=== PATIENT | male | born 1935 | race Caucasian/White ===

== ENCOUNTER 2016-12-19 15:35 | Inpatient (IN) | payer MEDICARE, BC, MEDICAID ==
[2016-12-19] MEDS ORDERED: Lactated Ringers 1,000 ML IV SCH ×2 (17:15→18:29)
--- NOTE | 2016-12-19 17:28 | EDM.PDOC ---
[id number] 4d ILLNESS Time Seen by Provider: 12/19/16 17:00 Source of Information: Reports: Patient, EMS, Family History Limitations: Reports: No Limitations - History of Present Illness INITIAL COMMENTS - FREE TEXT/NARRATIVE: 81-year-old lives with his son, usually fairly independent, active, gets around on his own, however over the past 12 hours has become very weak. He was incontinent this morning, did not have the strength in his legs to go up and down stairs and his son was unable to take care of him. He also felt "warm". He had no nausea or vomiting, no shortness of breath, no headache, and no asymmetric weakness that his son identified. He also seems somewhat confused compared to his baseline. Onset: Unknown/Unsure (Symptoms seem to come on sometime overnight and this morning) Location: Reports: Generalized (Mostly his legs were the weakest) Quality: Reports: Other (Patient himself has no complaints) Severity: Moderate Worsens with: Reports: Other (Trying to ambulate he doesn't have the strength) Associated Symptoms: Reports: Confusion, Fever/Chills, Malaise, Weakness - Related Data Allergies Allergy/AdvReac Type Severity Reaction Status Date / Time No Known Allergies Allergy Verified 12/19/16 15:51 Home Meds: Home Meds Atenolol 50 mg PO BID 07/08/13 [History] Digoxin 0.25 mg PO DAILY 07/08/13 [History] metFORMIN [Glucophage] 1,000 mg PO BIDM 07/08/13 [History] Acetaminophen [Tylenol] 650 mg PO Q6H PRN #120 tab 07/19/13 [Rx] Donepezil [Aricept] 5 mg PO BEDTIME 12/19/16 [History] Furosemide 20 mg PO DAILY 12/19/16 [History] PARoxetine [Paxil] 5 mg PO DAILY 12/19/16 [History] atorvaSTATin [Lipitor] 20 mg PO DAILY 12/19/16 [History] Warfarin [Coumadin] 2.5 mg PO SUTUTHSA@1300 12/20/16 [History] Warfarin [Coumadin] 5 mg PO MOWEFR 12/20/16 [History] Ciprofloxacin [Ciprofloxacin HCl] 500 mg PO BID #8 tablet 12/22/16 [Rx] Past Medical History HEENT History: Reports: Hard of Hearing, Impaired Vision Cardiovascular History: Reports: Arrhythmia, Blood Clots/VTE/DVT, High Cholesterol, Hypertension Musculoskeletal History: Reports: Fracture, Osteoarthritis, Other (See Below) Other Musculoskeletal History: pelvic fracture Neurological History: Reports: Alzheimers Disease Endocrine/Metabolic History: Reports: Diabetes, Type II Dermatologic History: Reports: Cellulitis Social & Family History - Tobacco Use Smoking Status *Q: Never Smoker Second Hand Smoke Exposure: No - Caffeine Use Caffeine Use: Reports: Coffee - Alcohol Use Days Per Week of Alcohol Use: 0 Number of Drinks Per Day: 0 Total Drinks Per Week: 0 - Recreational Drug Use Recreational Drug Use: No ED ROS GENERAL - Review of Systems Review Of Systems: See Below Constitutional: Reports: Fever, Chills, Malaise, Weakness HEENT: Reports: No Symptoms Respiratory: Denies: Shortness of Breath, Cough Cardiovascular: Denies: Chest Pain, Palpitations GI/Abdominal: Denies: Abdominal Pain, Nausea, Vomiting : Reports: Other (Urine has a strong odor, he was incontinent this morning) Skin: Reports: Bruising (Scattered bruises but nothing new, no abrasions or lacerations) Neurological: Reports: Confusion. Denies: Headache Psychiatric: Reports: No Symptoms ED EXAM, GENERAL - Physical Exam Exam: See Below Exam Limited By: No Limitations General Appearance: Alert, No Apparent Distress Eye Exam: Bilateral Eye: EOMI Throat/Mouth: Normal Inspection (Normal hydration) Head: Atraumatic Neck: Supple Respiratory/Chest: No Respiratory Distress, Lungs Clear Cardiovascular: No Murmur, Irregularly Irregular GI/Abdominal: Soft, Non-Tender Back Exam: No: Vertebral Tenderness Extremities: Pedal Edema (Patient has just a trace of pretibial edema bilaterally) Neurological: Alert, Oriented, Other (Hard of hearing, no obvious asymmetric neurologic deficits to the arms or legs. Speech is clear, patient is answering questions appropriately.) Skin Exam: Warm, Dry Course - Vital Signs Last Recorded V/S: Last Vital Signs Temp 97.5 F 12/22/16 11:00 Pulse 76 12/22/16 11:00 Resp 18 12/22/16 11:00 BP 110/62 12/22/16 11:00 Pulse Ox 94 L 12/22/16 11:00 - Orders/Labs/Meds Labs: Laboratory Tests 12/19/16 12/19/16 12/19/16 Range/Units 16:12 16:57 16:57 WBC 14.4 H (4.5-11.0) K/uL RBC 3.90 L (4.30-5.90) M/uL Hgb 11.9 L (12.0-15.0) g/dL Hct 36.4 L (40.0-54.0) % MCV 93 (80-98) fL MCH 31 (27-31) pg MCHC 33 (32-36) % Plt Count 160 (150-400) K/uL Neut % (Auto) 87 H (36-66) % Lymph % (Auto) 3 L (24-44) % [place] % (Auto) 10 H (2-6) % Eos % (Auto) 0 L (2-4) % Baso % (Auto) 0 (0-1) % Sodium 136 L (140-148) mmol/L Potassium 4.1 (3.6-5.2) mmol/L Chloride 99 L (100-108) mmol/L Carbon Dioxide 32 (21-32) mmol/L Anion Gap 9.1 (5.0-14.0) mmol/L BUN 27 H D (7-18) mg/dL Creatinine 1.2 D (0.8-1.3) mg/dL Est Cr Clr Drug Dosing 44.37 mL/min Estimated GFR (MDRD) 58 L (>60) Glucose 228 H (74-106) mg/dL Lactic Acid (0.4-2.0) mmol/L Calcium 8.7 (8.5-10.1) mg/dL Total Bilirubin 1.9 H D (0.2-1.0) mg/dL AST 17 (15-37) U/L ALT 19 (12-78) U/L Alkaline Phosphatase 69 (46-116) U/L Total Protein 7.5 (6.4-8.2) g/dL Albumin 3.3 L (3.4-5.0) g/dL Globulin 4.2 H (2.3-3.5) g/dL Albumin/Globulin Ratio 0.8 L (1.2-2.2) Urine Color Yellow Urine Appearance Turbid Urine pH 5.0 (4.5-8.0) Ur Specific [place] 1.020 (1.008-1.030) Urine Protein 100 H (NEGATIVE) mg/dL Urine Glucose (UA) 250 H (NEGATIVE) mg/dL Urine Ketones Negative (NEGATIVE) mg/dL Urine Occult Blood Large (NEGATIVE) Urine Nitrite Negative (NEGAITVE) Urine Bilirubin Negative (NEGATIVE) Urine Urobilinogen Normal (NORMAL) mg/dL Ur Leukocyte Esterase Moderate (NEGATIVE) Urine RBC 5-10 H (0-5) Urine WBC 20-30 H (0-5) Ur Epithelial Cells Rare Amorphous Sediment Not seen Urine Bacteria Many Urine Mucus Not seen 12/19/16 Range/Units 17:13 WBC (4.5-11.0) K/uL RBC (4.30-5.90) M/uL Hgb (12.0-15.0) g/dL Hct (40.0-54.0) % MCV (80-98) fL MCH (27-31) pg MCHC (32-36) % Plt Count (150-400) K/uL Neut % (Auto) (36-66) % Lymph % (Auto) (24-44) % [place] % (Auto) (2-6) % Eos % (Auto) (2-4) % Baso % (Auto) (0-1) % Sodium (140-148) mmol/L Potassium (3.6-5.2) mmol/L Chloride (100-108) mmol/L Carbon Dioxide (21-32) mmol/L Anion Gap (5.0-14.0) mmol/L BUN (7-18) mg/dL Creatinine (0.8-1.3) mg/dL Est Cr Clr Drug Dosing mL/min Estimated GFR (MDRD) (>60) Glucose (74-106) mg/dL Lactic Acid 2.4 H (0.4-2.0) mmol/L Calcium (8.5-10.1) mg/dL Total Bilirubin (0.2-1.0) mg/dL AST (15-37) U/L ALT (12-78) U/L Alkaline Phosphatase (46-116) U/L Total Protein (6.4-8.2) g/dL Albumin (3.4-5.0) g/dL Globulin (2.3-3.5) g/dL Albumin/Globulin Ratio (1.2-2.2) Urine Color Urine Appearance Urine pH (4.5-8.0) Ur Specific [place] (1.008-1.030) Urine Protein (NEGATIVE) mg/dL Urine Glucose (UA) (NEGATIVE) mg/dL Urine Ketones (NEGATIVE) mg/dL Urine Occult Blood (NEGATIVE) Urine Nitrite (NEGAITVE) Urine Bilirubin (NEGATIVE) Urine Urobilinogen (NORMAL) mg/dL Ur Leukocyte Esterase (NEGATIVE) Urine RBC (0-5) Urine WBC (0-5) Ur Epithelial Cells Amorphous Sediment Urine Bacteria Urine Mucus Meds: Medications Discontinued Medications Generic Name Dose Route Start Last Admin Trade Name Freq PRN Reason Stop Dose Admin Acetaminophen 650 mg 12/19/16 18:29 Tylenol PO Q4H PRN Pain (Mild 1-3)/fever Albuterol 2.5 mg 12/19/16 18:29 Proventil Neb Soln NEB Q4H PRN Shortness Of Breath/wheezing Atenolol 50 mg 12/19/16 21:00 12/22/16 08:22 Tenormin PO 50 mg BID MARY Administration Atorvastatin Calcium 20 mg 12/20/16 21:00 12/21/16 20:51 Lipitor PO 20 mg BEDTIME MARY Administration Ciprofloxacin 500 mg 12/21/16 11:45 12/22/16 08:22 Ciprofloxacin Hcl PO 500 mg BID MARY Administration Dextrose 15 gm 12/19/16 18:29 Glutose 15 PO ONETIME PRN Hypoglycemia Dextrose/Water 50 ml 12/19/16 18:29 Dextrose 50% In Water IV ONETIME PRN Hypoglycemia Digoxin 250 mcg 12/20/16 13:00 Lanoxin PO DAILY@1300 MARY Docusate Sodium 100 mg 12/19/16 18:29 12/21/16 08:54 Colace PO 100 mg BID PRN Administration Constipation Donepezil HCl 5 mg 12/20/16 21:00 12/21/16 20:53 Aricept PO 5 mg BEDTIME MARY Administration Furosemide 20 mg 12/20/16 09:00 12/22/16 08:23 Lasix PO 20 mg DAILY MARY Administration Lactated Ringer's 1,000 mls @ 500 mls/hr 12/19/16 17:15 12/19/16 17:52 Ringers, Lactated IV 500 mls/hr ASDIRECTED MARY Administration Ceftriaxone Sodium 1 gm/ 50 mls @ 100 mls/hr 12/19/16 18:00 12/20/16 18:51 Sodium Chloride IV 100 mls/hr Q24H MARY Administration Lactated Ringer's 1,000 mls @ 125 mls/hr 12/19/16 21:30 12/20/16 04:44 Ringers, Lactated IV 125 mls/hr ASDIRECTED MARY Administration Lactated Ringer's 1,000 mls @ 500 mls/hr 12/19/16 18:29 Ringers, Lactated IV 12/19/16 22:30 ASDIRECTED MARY Magnesium Sulfate 2 gm/ Premix 50 mls @ 25 mls/hr 12/20/16 10:00 12/20/16 16: 22 IV 12/20/16 17:59 25 mls/hr Q6H MARY Administration Lactated Ringer's 1,000 mls @ 50 mls/hr 12/20/16 12:15 12/21/16 02:48 Ringers, Lactated IV 50 mls/hr ASDIRECTED MARY Administration Insulin Aspart 0 unit 12/19/16 18:29 Novolog SUBCUT ASDIRECTED MARY Protocol Insulin Aspart 0 unit 12/19/16 21:31 12/22/16 12:00 Novolog SUBCUT 2 unit QIDACANDBED PRN Administration Blood Glucose Protocol Magnesium Hydroxide 30 ml 12/19/16 18:29 12/21/16 08:55 Milk Of Magnesia PO 30 ml Q12H PRN Administration Constipation Melatonin 9 mg 12/19/16 21:00 12/21/16 20:51 Melatonin PO 9 mg BEDTIME MARY Administration Ondansetron HCl 4 mg 12/19/16 18:29 Zofran IV Q4H PRN Nausea/Vomiting Paroxetine HCl 5 mg 12/20/16 09:00 12/22/16 08:22 Paxil PO 5 mg DAILY MARY Administration Polyethylene Glycol 17 gm 12/19/16 18:29 Miralax PO DAILY PRN Constipation Sodium Chloride 10 ml 12/19/16 18:29 Saline Flush FLUSH ASDIRECTED PRN Keep Vein Open Tamsulosin HCl 0.4 mg 12/21/16 11:45 12/22/16 08:22 Flomax PO 0.4 mg DAILY MARY Administration Warfarin Sodium 2.5 mg 12/20/16 13:00 12/22/16 13:17 Coumadin PO 2.5 mg SuTuThSa@1300 MARY Administration Warfarin Sodium 5 mg 12/21/16 13:00 12/21/16 13:42 Coumadin PO 5 mg Fer@1300 [facility] Administration - Re-Assessments/Exams Free Text/Narrative Re-Assessment/Exam: 12/19/16 17:37 A UA was obtained, along with a CBC and CMP. 12/19/16 17:45 UA was positive for many bacteria, 10-20 WBCs so a culture was initiated. The patient's vitals remained stable except his temperature was over 100, so a lactic acid and blood cultures were added to his workup. Dr. Rose of the hospitalist service was consulted to see the patient for likely admission for IV antibiotics. 12/19/16 17:46 White blood cell count came back 14,400. 12/19/16 17:46 Lactic acid was 2.4, glucose 224. Departure - Departure Time of Disposition: 18:38 Disposition: Admitted As Inpatient 65 Condition: Fair Clinical Impression: Sepsis secondary to UTI, Weakness - Discharge Information
--- NOTE | 2016-12-19 17:50 | PCM.HP ---
H&P History of Present Illness - General Date of Service: 12/19/16 Admit Problem/Dx: Admission Diagnosis/Problem Admission Diagnosis/Problem UTI, Urinary tract infectious disease Source of Information: Patient, Provider, RN Notes Reviewed History Limitations: Reports: Altered Mental Status (Dementia) - History of Present Illness Initial Comments - Free Text/Narative: Mr. Cason is an 81-year-old gentleman who is admitted through the emergency room with urinary tract infection and early sepsis. He was doing well until this morning when he was noted to be weak, during the day. He became progressively more weak and was brought into the emergency department for further evaluation. On initial assessment had stable vital signs but was noted to have a temperature elevation as well as elevated white blood cell count. Urinalysis shows obvious evidence of urinary tract infection. Lactic acid level is mildly elevated consistent with early sepsis. Patient is unable to provide significant history concerning recent symptoms or events because of his underlying dementia. - Related Data Allergies/Adverse Reactions: Allergies Allergy/AdvReac Type Severity Reaction Status Date / Time No Known Allergies Allergy Verified 12/19/16 15:51 Home Medications: Home Meds Atenolol 50 mg PO BID 07/08/13 [History] Digoxin 0.25 mg PO DAILY 07/08/13 [History] metFORMIN [Glucophage] 1,000 mg PO BIDM 07/08/13 [History] Acetaminophen [Tylenol] 650 mg PO Q6H PRN #120 tab 07/19/13 [Rx] Warfarin [Coumadin] 2.5 mg PO DAILY #0 07/19/13 [Rx] Warfarin [Coumadin] 5 mg PO DAILY #0 07/19/13 [Rx] Donepezil [Aricept] 5 mg PO BEDTIME 12/19/16 [History] Furosemide 20 mg PO DAILY 12/19/16 [History] PARoxetine [Paxil] 5 mg PO DAILY 12/19/16 [History] atorvaSTATin [Lipitor] 20 mg PO DAILY 12/19/16 [History] Past Medical History HEENT History: Reports: Hard of Hearing, Impaired Vision Cardiovascular History: Reports: Arrhythmia, Blood Clots/VTE/DVT, High Cholesterol, Hypertension Musculoskeletal History: Reports: Fracture, Osteoarthritis, Other (See Below) Other Musculoskeletal History: pelvic fracture Neurological History: Reports: Alzheimers Disease Endocrine/Metabolic History: Reports: Diabetes, Type II Dermatologic History: Reports: Cellulitis Social & Family History - Tobacco Use Smoking Status *Q: Never Smoker Second Hand Smoke Exposure: No - Caffeine Use Caffeine Use: Reports: Coffee - Alcohol Use Days Per Week of Alcohol Use: 0 Number of Drinks Per Day: 0 Total Drinks Per Week: 0 - Recreational Drug Use Recreational Drug Use: No H&P Review of Systems - Review of Systems: Review Of Systems: Unable To Obtain General: Reports: ROS unobtainable (Dementia) Exam - Exam Exam: See Below - Vital Signs Vital Signs: Last Vital Signs Temp 100.6 F 12/19/16 16:00 Pulse 67 12/19/16 16:00 Resp 16 12/19/16 16:00 BP 138/84 12/19/16 16:00 Pulse Ox 92 L 12/19/16 16:00 Weight: 160 lb - Exam Quality Assessment: DVT Prophylaxis General: Alert, Cooperative, Mild Distress HEENT: Conjunctiva Clear, Hearing Intact, Normal Nasal Septum, Posterior Pharynx Clear, Pupils Equal. No: Mucosa Moist & [place] Neck: Supple, Trachea Midline, +2 Carotid Pulse wo Bruit Lungs: Clear to Auscultation, Normal Respiratory Effort Cardiovascular: Regular Rate, Regular Rhythm, Normal S1, Normal S2. No: Tachycardia, Systolic Murmur, Diastolic Murmur Abdomen: Normal Bowel Sounds, Soft Back Exam: Normal Inspection, Full Range of Motion, NT Extremities: 3, Normal Inspection, 10 Skin: Warm, Dry, Intact Neurological: Cranial Nerves Intact, Strength Equal Bilateral, Normal Speech, Normal Tone, Sensation Intact. No: Focal Deficit Neuro Extensive - Mental Status: Alert, Normal Mood/Affect, Disorientation to Place, Disorientation to Time, Memory Loss-Remote Events, Memory Loss-Recent Events. No: Normal Cognition, Memory Intact - Patient Data Lab Results Last 24 hrs: Laboratory Results - last 24 hr 12/19/16 12/19/16 12/19/16 Range/Units 16:12 16:57 16:57 WBC 14.4 H (4.5-11.0) K/uL RBC 3.90 L (4.30-5.90) M/uL Hgb 11.9 L (12.0-15.0) g/dL Hct 36.4 L (40.0-54.0) % MCV 93 (80-98) fL MCH 31 (27-31) pg MCHC 33 (32-36) % Plt Count 160 (150-400) K/uL Neut % (Auto) 87 H (36-66) % Lymph % (Auto) 3 L (24-44) % [place] % (Auto) 10 H (2-6) % Eos % (Auto) 0 L (2-4) % Baso % (Auto) 0 (0-1) % Sodium 136 L (140-148) mmol/L Potassium 4.1 (3.6-5.2) mmol/L Chloride 99 L (100-108) mmol/L Carbon Dioxide 32 (21-32) mmol/L Anion Gap 9.1 (5.0-14.0) mmol/L BUN 27 H D (7-18) mg/dL Creatinine 1.2 D (0.8-1.3) mg/dL Est Cr Clr Drug Dosing 44.37 mL/min Estimated GFR (MDRD) 58 L (>60) Glucose 228 H (74-106) mg/dL Lactic Acid (0.4-2.0) mmol/L Calcium 8.7 (8.5-10.1) mg/dL Total Bilirubin 1.9 H D (0.2-1.0) mg/dL AST 17 (15-37) U/L ALT 19 (12-78) U/L Alkaline Phosphatase 69 (46-116) U/L Total Protein 7.5 (6.4-8.2) g/dL Albumin 3.3 L (3.4-5.0) g/dL Globulin 4.2 H (2.3-3.5) g/dL Albumin/Globulin Ratio 0.8 L (1.2-2.2) Urine Color Yellow Urine Appearance Turbid Urine pH 5.0 (4.5-8.0) Ur Specific [place] 1.020 (1.008-1.030) Urine Protein 100 H (NEGATIVE) mg/dL Urine Glucose (UA) 250 H (NEGATIVE) mg/dL Urine Ketones Negative (NEGATIVE) mg/dL Urine Occult Blood Large (NEGATIVE) Urine Nitrite Negative (NEGAITVE) Urine Bilirubin Negative (NEGATIVE) Urine Urobilinogen Normal (NORMAL) mg/dL Ur Leukocyte Esterase Moderate (NEGATIVE) Urine RBC 5-10 H (0-5) Urine WBC 20-30 H (0-5) Ur Epithelial Cells Rare Amorphous Sediment Not seen Urine Bacteria Many Urine Mucus Not seen 12/19/16 Range/Units 17:13 WBC (4.5-11.0) K/uL RBC (4.30-5.90) M/uL Hgb (12.0-15.0) g/dL Hct (40.0-54.0) % MCV (80-98) fL MCH (27-31) pg MCHC (32-36) % Plt Count (150-400) K/uL Neut % (Auto) (36-66) % Lymph % (Auto) (24-44) % [place] % (Auto) (2-6) % Eos % (Auto) (2-4) % Baso % (Auto) (0-1) % Sodium (140-148) mmol/L Potassium (3.6-5.2) mmol/L Chloride (100-108) mmol/L Carbon Dioxide (21-32) mmol/L Anion Gap (5.0-14.0) mmol/L BUN (7-18) mg/dL Creatinine (0.8-1.3) mg/dL Est Cr Clr Drug Dosing mL/min Estimated GFR (MDRD) (>60) Glucose (74-106) mg/dL Lactic Acid 2.4 H (0.4-2.0) mmol/L Calcium (8.5-10.1) mg/dL Total Bilirubin (0.2-1.0) mg/dL AST (15-37) U/L ALT (12-78) U/L Alkaline Phosphatase (46-116) U/L Total Protein (6.4-8.2) g/dL Albumin (3.4-5.0) g/dL Globulin (2.3-3.5) g/dL Albumin/Globulin Ratio (1.2-2.2) Urine Color Urine Appearance Urine pH (4.5-8.0) Ur Specific [place] (1.008-1.030) Urine Protein (NEGATIVE) mg/dL Urine Glucose (UA) (NEGATIVE) mg/dL Urine Ketones (NEGATIVE) mg/dL Urine Occult Blood (NEGATIVE) Urine Nitrite (NEGAITVE) Urine Bilirubin (NEGATIVE) Urine Urobilinogen (NORMAL) mg/dL Ur Leukocyte Esterase (NEGATIVE) Urine RBC (0-5) Urine WBC (0-5) Ur Epithelial Cells Amorphous Sediment Urine Bacteria Urine Mucus Result Diagrams: 12/19/16 16:57 12/19/16 16:57 *Q Meaningful Use (ADM) - VTE *Q VTE Criteria *Q: VTE Pharmacological Contraindications *Q: High INR Value - VTE Risk Assess *Q Each Risk Factor Represents 1 Point: Sepsis, Less than 1 Month Total Score 1 Point Risk Factors: 1 Each Risk Factor Represents 2 Points: None Total Score 2 Point Risk Factors: 0 Each Risk Factor Represents 3 Points: Age 75 Years or Greater Total Score 3 Point Risk Factors: 3 Each Risk Factor Represents 5 Points: None Total Score 5 Point Risk Factors: 0 Venous Thromboembolism Risk Factor Score *Q: 4 - Stroke *Q Stroke Criteria *Q: - AMI *Q AMI Criteria *Q: Problem List Initiated/Reviewed/Updated: Yes Orders Last 24hrs: Active Orders 24 hr Category Date Time Status Patient Status Manage Transfer [TRANSFER] Routine ADT 12/19/16 17:16 Active CULTURE BLOOD [BC] Urgent Lab 12/19/16 17:15 Received CULTURE BLOOD [BC] Urgent Lab 12/19/16 17:26 Received CULTURE URINE [RM] Stat Lab 12/19/16 17:30 Received Lactated Ringers [Ringers, Lactated] 1,000 ml Med 12/19/16 17:15 Active IV ASDIRECTED cefTRIAXone [Rocephin] 1 gm Med 12/19/16 18:00 Active Sodium Chloride 0.9% [Normal Saline] 50 ml IV Q24H Blood Culture x2 Reflex Set [OM.PC] Urgent Oth 12/19/16 17:13 Ordered Resuscitation Status Routine Resus Stat 12/19/16 17:22 Ordered Medication Orders Lactated Ringer's (Ringers, Lactated) 1,000 mls @ 500 mls/hr IV ASDIRECTED MARY Ceftriaxone Sodium 1 gm/ (Sodium Chloride) 50 mls @ 100 mls/hr IV Q24H [facility] Assessment/Plan Comment:: ASSESSMENT AND PLAN URINARY TRACT INFECTION WITH EARLY SEPSIS-symptoms have been present approximately 12 hours and have progressed rapidly. Patient was brought into the emergency department by a family because of profound weakness. Lactic acid level is mildly elevated, temperature elevated, white blood cell count elevated , associated with evidence of infection on urinalysis. -Blood and sputum cultures pending -Aggressive IV fluid replacement per protocol, 30 mL/kg -Recheck lactic acid level later today and again in a.m. -Rocephin 1 g IV every 24 hours pending culture results DEMENTIA -Continue outpatient medical regimen CHRONIC KIDNEY DISEASE STAGE III -Closely monitor urine output and renal function during hospital stay TYPE 2 DIABETES MELLITUS -Hold metformin -4 times a day glucometers -Low-dose sliding scale NovoLog ATRIAL FIBRILLATION-adequate rate control on current therapy -Continue beta irma and digoxin -Digoxin level -Continue oral anticoagulation with warfarin -INR now and in a.m. MAINTENANCE ISSUES -DVT prophylaxis; current therapy with warfarin should provide adequate DVT prophylaxis -GI prophylaxis; not indicated -Robles catheter; not indicated -Nutrition; consistent carbohydrate diet -Nicotine dependence; not required CODE STATUS-FULL CODE ADMISSION STATUS-patient will be admitted to inpatient status, expect at least a 2 night hospital stay for evaluation and management of problems as outlined above. At the time of this admission I do not reasonably expected evaluation and management of this problem will require more than a 96 hour hospital stay. DISPOSITION-anticipate discharge to home after the hospital stay. PRIMARY CARE PROVIDER-Dr. Okeefe
[2016-12-19] MEDS: cefTRIAXone 1 GM in Sodium Chloride 0.9% 50 ML IV SCH (17:52)
[2016-12-19] MEDS ORDERED: Insulin Aspart 100 Units/ML 3 ML Pen SUBCUT SCH (18:29)
[2016-12-19] MEDS ORDERED: 50% Dextrose in Water 50 ML Syringe IV PRN (18:29)
[2016-12-19] MEDS ORDERED: Magnesium Hydroxide 400 MG/5 ML Susp 30 ML Cup PO PRN (18:29)
[2016-12-19] MEDS ORDERED: Polyethylene Glycol 3350 Powder 17 GM Packet PO PRN (18:29)
[2016-12-19] MEDS ORDERED: Albuterol 0.083% 2.5 MG/3 ML Neb Soln NEB PRN (18:29)
[2016-12-19] MEDS ORDERED: Ondansetron 4 MG/2 ML SDV IV PRN (18:29)
[2016-12-19] MEDS ORDERED: Glucose Gel 15 GM in 37.5 GM Tube PO PRN (18:29)
[2016-12-19] MEDS ORDERED: Sodium Chloride 0.9% 10 ML Syringe FLUSH PRN (18:29)
[2016-12-19] MEDS ORDERED: Acetaminophen 325 MG Tab PO PRN (18:29)
[2016-12-19] MEDS: Lactated Ringers 1,000 ML IV SCH (20:43)
[2016-12-19] MEDS: Atenolol 50 MG Tab PO SCH (21:43)
[2016-12-19] MEDS: Melatonin 3 MG Tab PO SCH (21:46)
[2016-12-19] MEDS: Docusate Sodium 100 MG Cap PO PRN (21:53)
[2016-12-19] MEDS: Insulin Aspart 100 Units/ML 3 ML Pen SUBCUT PRN (22:18)
[2016-12-20] MEDS: Lactated Ringers 1,000 ML IV SCH ×2 (04:44→14:34)
[2016-12-20] MEDS ORDERED: Warfarin 5 MG Tab PO SCH (09:00)
[2016-12-20] MEDS ORDERED: PAROXETINE 5 MG PO SCH (09:00)
[2016-12-20] MEDS ORDERED: atorvaSTATin 20 MG Tab PO SCH (09:00)
[2016-12-20] MEDS: PARoxetine 20 MG Tab PO SCH (10:58)
[2016-12-20] MEDS: Magnesium Sulfate/Water 2 GM in Premix Bag 1 BAG IV SCH ×2 (10:58→16:22)
[2016-12-20] MEDS: Insulin Aspart 100 Units/ML 3 ML Pen SUBCUT PRN ×3 (11:41→20:58)
--- NOTE | 2016-12-20 12:07 | PCM.PN ---
- General Info Date of Service: 12/20/16 - Review of Systems Systems Review Comment:: This patient has been more stable since admission. Blood pressure and heart rate this morning were somewhat borderline but have improved over the past few hours. Rate slowing medication and antihypertensive therapy have been held. He is unable to provide significant history concerning symptoms and events because of his underlying dementia. Abscess appears to have resolved with normalization of his lactic acid level. - Patient Data Vitals - most recent: Last Vital Signs Temp 98.1 F 12/20/16 10:47 Pulse 54 L 12/20/16 10:47 Resp 18 12/20/16 10:47 BP 100/52 L 12/20/16 10:47 Pulse Ox 93 L 12/20/16 10:47 Weight - most recent: 142 lb 9.6 oz I&O - last 24 hours: Intake & Output 12/19/16 12/20/16 12/20/16 22:59 06:59 14:59 Intake Total 90 1947 750 Output Total 125 Balance -35 1947 750 Lab Results last 24 hrs: Laboratory Results - last 24 hr 12/19/16 12/19/16 12/19/16 Range/Units 18:29 18:29 23:25 WBC (4.5-11.0) K/uL RBC (4.30-5.90) M/uL Hgb (12.0-15.0) g/dL Hct (40.0-54.0) % MCV (80-98) fL MCH (27-31) pg MCHC (32-36) % Plt Count (150-400) K/uL Neut % (Auto) (36-66) % Lymph % (Auto) (24-44) % [place] % (Auto) (2-6) % Eos % (Auto) (2-4) % Baso % (Auto) (0-1) % PT 16.1 H (9.5-12.0) sec INR 1.48 H D (0.80-1.20) Sodium (140-148) mmol/L Potassium (3.6-5.2) mmol/L Chloride (100-108) mmol/L Carbon Dioxide (21-32) mmol/L Anion Gap (5.0-14.0) mmol/L BUN (7-18) mg/dL Creatinine (0.8-1.3) mg/dL Est Cr Clr Drug Dosing mL/min Estimated GFR (MDRD) (>60) Glucose (74-106) mg/dL Lactic Acid 2.1 H (0.4-2.0) mmol/L Calcium (8.5-10.1) mg/dL Magnesium (1.8-2.4) mg/dL Digoxin 1.99 (0.90-2.00) ng/mL 12/20/16 12/20/16 12/20/16 Range/Units 05:00 05:00 05:00 WBC 14.8 H (4.5-11.0) K/uL RBC 3.45 L (4.30-5.90) M/uL Hgb 10.6 L (12.0-15.0) g/dL Hct 32.5 L (40.0-54.0) % MCV 94 (80-98) fL MCH 31 (27-31) pg MCHC 33 (32-36) % Plt Count 141 L (150-400) K/uL Neut % (Auto) 82 H (36-66) % Lymph % (Auto) 7 L (24-44) % [place] % (Auto) 11 H (2-6) % Eos % (Auto) 0 L (2-4) % Baso % (Auto) 0 (0-1) % PT 14.9 H (9.5-12.0) sec INR 1.37 H (0.80-1.20) Sodium (140-148) mmol/L Potassium (3.6-5.2) mmol/L Chloride (100-108) mmol/L Carbon Dioxide (21-32) mmol/L Anion Gap (5.0-14.0) mmol/L BUN (7-18) mg/dL Creatinine (0.8-1.3) mg/dL Est Cr Clr Drug Dosing mL/min Estimated GFR (MDRD) (>60) Glucose (74-106) mg/dL Lactic Acid 1.7 (0.4-2.0) mmol/L Calcium (8.5-10.1) mg/dL Magnesium (1.8-2.4) mg/dL Digoxin (0.90-2.00) ng/mL 12/20/16 Range/Units 05:00 WBC (4.5-11.0) K/uL RBC (4.30-5.90) M/uL Hgb (12.0-15.0) g/dL Hct (40.0-54.0) % MCV (80-98) fL MCH (27-31) pg MCHC (32-36) % Plt Count (150-400) K/uL Neut % (Auto) (36-66) % Lymph % (Auto) (24-44) % [place] % (Auto) (2-6) % Eos % (Auto) (2-4) % Baso % (Auto) (0-1) % PT (9.5-12.0) sec INR (0.80-1.20) Sodium 136 L (140-148) mmol/L Potassium 4.1 (3.6-5.2) mmol/L Chloride 101 (100-108) mmol/L Carbon Dioxide 31 (21-32) mmol/L Anion Gap 8.1 (5.0-14.0) mmol/L BUN 24 H (7-18) mg/dL Creatinine 1.2 (0.8-1.3) mg/dL Est Cr Clr Drug Dosing 43.42 mL/min Estimated GFR (MDRD) 58 L (>60) Glucose 152 H (74-106) mg/dL Lactic Acid (0.4-2.0) mmol/L Calcium 8.3 L (8.5-10.1) mg/dL Magnesium 1.3 L (1.8-2.4) mg/dL Digoxin (0.90-2.00) ng/mL Topher Results last 24 hrs: Microbiology 12/19/16 17:30 Urine Culture - Preliminary Urine, Clean Catch Med Orders - Current: Current Medications Acetaminophen (Tylenol) 650 mg PO Q4H PRN PRN Reason: Pain (Mild 1-3)/fever Albuterol (Proventil Neb Soln) 2.5 mg NEB Q4H PRN PRN Reason: Shortness Of Breath/wheezing Atenolol (Tenormin) 50 mg PO BID [facility]ARY Last Admin: 12/19/16 21:43 Dose: 50 mg Atorvastatin Calcium (Lipitor) 20 mg PO BEDTIME [facility] Dextrose (Glutose 15) 15 gm PO ONETIME PRN PRN Reason: Hypoglycemia Dextrose/Water (Dextrose 50% In Water) 50 ml IV ONETIME PRN PRN Reason: Hypoglycemia Digoxin (Lanoxin) 250 mcg PO DAILY@1300 [facility] Docusate Sodium (Colace) 100 mg PO BID PRN PRN Reason: Constipation Last Admin: 12/19/16 21:53 Dose: 100 mg Donepezil HCl (Aricept) 5 mg PO BEDTIME [facility] Furosemide (Lasix) 20 mg PO DAILY [facility] Ceftriaxone Sodium 1 gm/ (Sodium Chloride) 50 mls @ 100 mls/hr IV Q24H [facility] Last Admin: 12/19/16 17:52 Dose: 100 mls/hr Magnesium Sulfate 2 gm/ Premix 50 mls @ 25 mls/hr IV Q6H [facility] Stop: 12/20/16 17:59 Last Admin: 12/20/16 10:58 Dose: 25 mls/hr Insulin Aspart (Novolog) 0 unit SUBCUT QIDACANDBED PRN; Protocol PRN Reason: Blood Glucose Last Admin: 12/20/16 11:41 Dose: 2 unit Magnesium Hydroxide (Milk Of Magnesia) 30 ml PO Q12H PRN PRN Reason: Constipation Melatonin (Melatonin) 9 mg PO BEDTIME [facility] Last Admin: 12/19/16 21:46 Dose: 9 mg Ondansetron HCl (Zofran) 4 mg IV Q4H PRN PRN Reason: Nausea/Vomiting Paroxetine HCl (Paxil) 5 mg PO DAILY [facility] Last Admin: 12/20/16 10:58 Dose: 5 mg Polyethylene Glycol (Miralax) 17 gm PO DAILY PRN PRN Reason: Constipation Sodium Chloride (Saline Flush) 10 ml FLUSH ASDIRECTED PRN PRN Reason: Keep Vein Open Warfarin Sodium (Coumadin) 2.5 mg PO SuTuThSa@1300 [facility] Warfarin Sodium (Coumadin) 5 mg PO MoWeFr@1300 [facility] Discontinued Medications Lactated Ringer's (Ringers, Lactated) 1,000 mls @ 500 mls/hr IV ASDIRECTED [facility] Last Admin: 12/19/16 17:52 Dose: 500 mls/hr Lactated Ringer's (Ringers, Lactated) 1,000 mls @ 125 mls/hr IV ASDIRECTED [facility] Last Admin: 12/20/16 04:44 Dose: 125 mls/hr Lactated Ringer's (Ringers, Lactated) 1,000 mls @ 500 mls/hr IV ASDIRECTED [facility] Stop: 12/19/16 22:30 Insulin Aspart (Novolog) 0 unit SUBCUT ASDIRECTED [facility]ARY PRN Reason: Protocol - Exam General: alert, cooperative, no acute distress Lungs: Clear to auscultation, Normal respiratory effort Cardiovascular: Regular Rate, Regular Rhythm, No Murmurs Abdomen: bowel sounds present, soft, no tenderness, no distension Extremities: no edema Skin: warm, dry, intact - Problem List Review Problem List Initiated/Reviewed/Updated: Yes - My Orders Last 24 Hours: My Active Orders 12/19/16 17:22 Resuscitation Status Routine 12/19/16 18:29 Patient Status [ADT] Routine Blood Glucose Check, Bedside [RC] QIDACANDBED Communication Order [RC] ASDIRECTED Diabetes Education [RC] Click to Edit Intake and Output [RC] QSHIFT Notify Provider Vital Signs [RC] ASDIRECTED Notify Provider [RC] PRN Oxygen Therapy [RC] PRN Peripheral IV Care [RC] Q12H RT Aerosol Therapy [RC] ASDIRECTED Up With Assistance [RC] ASDIRECTED VTE/DVT Education [RC] Per Unit Routine Vital Signs [RC] Q4H Acetaminophen [Tylenol] 650 mg PO Q4H PRN Albuterol [Proventil Neb Soln] 2.5 mg NEB Q4H PRN Dextrose 50% in Water 50 ml IV ONETIME PRN Dextrose [Glutose 15] 15 gm PO ONETIME PRN Docusate Sodium [Colace] 100 mg PO BID PRN Magnesium Hydroxide [Milk of Magnesia] 30 ml PO Q12H PRN Ondansetron [Zofran] 4 mg IV Q4H PRN Polyethylene Glycol 3350 [MiraLAX] 17 gm PO DAILY PRN Sodium Chloride 0.9% [Saline Flush] 10 ml FLUSH ASDIRECTED PRN Peripheral IV Insertion Adult [OM.PC] Routine VTE Pharmacological Contraindications [AST] Per Unit Routine 12/19/16 21:00 Melatonin 9 mg PO BEDTIME 12/19/16 21:31 Insulin Aspart [NovoLOG] See Protocol SUBCUT QIDACANDBED PRN 12/19/16 Lunch Consistent Carbohydrate Diet [DIET] 12/20/16 09:00 PARoxetine [Paxil] 5 mg PO DAILY 12/20/16 10:00 Magnesium Sulfate/Water [Magnesium Sulfate 2 GM in Water 50 ML] 2 gm Premix Bag 1 bag IV Q6H 12/20/16 12:15 Lactated Ringers [Ringers, Lactated] 1,000 ml IV ASDIRECTED 12/20/16 16:30 GLUCOSE POC LAB TO COLLECT [POC] QIDACANDBED 12/20/16 21:00 GLUCOSE POC LAB TO COLLECT [POC] QIDACANDBED atorvaSTATin [Lipitor] 20 mg PO BEDTIME 12/21/16 05:00 BASIC METABOLIC PANEL,BMP [CHEM] Timed CBC WITH AUTO DIFF [HEME] Timed INR,PT,PROTHROMBIN TIME [COAG] Timed MAGNESIUM [CHEM] Timed 12/21/16 07:30 GLUCOSE POC LAB TO COLLECT [POC] QIDACANDBED 12/21/16 11:30 GLUCOSE POC LAB TO COLLECT [POC] QIDACANDBED 12/21/16 13:00 Warfarin [Coumadin] 5 mg PO MoWeFr@1300 12/21/16 16:30 GLUCOSE POC LAB TO COLLECT [POC] QIDACANDBED 12/21/16 21:00 GLUCOSE POC LAB TO COLLECT [POC] QIDACANDBED 12/22/16 07:30 GLUCOSE POC LAB TO COLLECT [POC] QIDACANDBED 12/22/16 11:30 GLUCOSE POC LAB TO COLLECT [POC] QIDACANDBED 12/22/16 16:30 GLUCOSE POC LAB TO COLLECT [POC] QIDACANDBED 12/22/16 21:00 GLUCOSE POC LAB TO COLLECT [POC] QIDACANDBED 12/23/16 07:30 GLUCOSE POC LAB TO COLLECT [POC] QIDACANDBED 12/23/16 11:30 GLUCOSE POC LAB TO COLLECT [POC] QIDACANDBED 12/23/16 16:30 GLUCOSE POC LAB TO COLLECT [POC] QIDACANDBED 12/23/16 21:00 GLUCOSE POC LAB TO COLLECT [POC] QIDACANDBED 12/24/16 07:30 GLUCOSE POC LAB TO COLLECT [POC] QIDACANDBED 12/24/16 11:30 GLUCOSE POC LAB TO COLLECT [POC] QIDACANDBED 12/24/16 16:30 GLUCOSE POC LAB TO COLLECT [POC] QIDACANDBED 12/24/16 21:00 GLUCOSE POC LAB TO COLLECT [POC] QIDACANDBED 12/25/16 07:30 GLUCOSE POC LAB TO COLLECT [POC] QIDACANDBED - Plan Plan:: ASSESSMENT AND PLAN URINARY TRACT INFECTION WITH EARLY SEPSIS-improved since admission, no further evidence of active sepsis, lactic acid level has normalized. -Blood and sputum cultures pending -Decrease IV rate to 50 mL per hour -Recheck lactic acid level later today and again in a.m. -Rocephin 1 g IV every 24 hours pending culture results DEMENTIA -Continue outpatient medical regimen CHRONIC KIDNEY DISEASE STAGE III-renal function stable -Closely monitor urine output and renal function during hospital stay TYPE 2 DIABETES MELLITUS -Hold metformin -4 times a day glucometers -Low-dose sliding scale NovoLog ATRIAL FIBRILLATION-adequate rate control on current therapy -Continue beta irma and digoxin -Continue oral anticoagulation with warfarin -INR in a.m. MAINTENANCE ISSUES -DVT prophylaxis; current therapy with warfarin should provide adequate DVT prophylaxis -GI prophylaxis; not indicated -Robles catheter; not indicated -Nutrition; consistent carbohydrate diet -Nicotine dependence; not required CODE STATUS-FULL CODE ADMISSION STATUS-patient will be admitted to inpatient status, expect at least a 2 night hospital stay for evaluation and management of problems as outlined above. At the time of this admission I do not reasonably expected evaluation and management of this problem will require more than a 96 hour hospital stay. DISPOSITION-anticipate discharge to home after the hospital stay. PRIMARY CARE PROVIDER-Dr. Okeefe
[2016-12-20] MEDS ORDERED: Digoxin 125 MCG Tab PO SCH (13:00)
[2016-12-20] MEDS: Warfarin 2.5 MG Tab PO SCH (14:35)
[2016-12-20] MEDS: cefTRIAXone 1 GM in Sodium Chloride 0.9% 50 ML IV SCH (18:51)
[2016-12-20] MEDS: Melatonin 3 MG Tab PO SCH (20:53)
[2016-12-20] MEDS: atorvaSTATin 20 MG Tab PO SCH (20:54)
[2016-12-20] MEDS: Atenolol 50 MG Tab PO SCH (20:54)
[2016-12-20] MEDS: Donepezil 10 MG Tab PO SCH (20:54)
[2016-12-21] MEDS: Lactated Ringers 1,000 ML IV SCH (02:48)
[2016-12-21] MEDS: Furosemide 20 MG Tab PO SCH (08:51)
[2016-12-21] MEDS: PARoxetine 20 MG Tab PO SCH (08:52)
[2016-12-21] MEDS: Atenolol 50 MG Tab PO SCH ×2 (08:53→20:52)
[2016-12-21] MEDS: Docusate Sodium 100 MG Cap PO PRN (08:54)
--- NOTE | 2016-12-21 11:09 | PCM.PN ---
- General Info Date of Service: 12/21/16 Functional Status: Reports: tolerating diet - Review of Systems General: Reports: Weakness. Denies: Fever, Chills Pulmonary: Reports: no symptoms Cardiovascular: Reports: No Symptoms Gastrointestinal: Reports: No symptoms Systems Review Comment:: This patient has been stable over the past 24 hours except some difficulty with urination. He's been noted to have frequent urination, bladder scan was obtained and shows evidence of post void residual of approximately 360 mL. Likely that he does have some underlying bladder outlet obstruction secondary to BPH. Vital signs have been stable and he has remained afebrile. Urine culture is growing out Escherichia coli which is found to be pansensitive. - Patient Data Vitals - most recent: Last Vital Signs Temp 96.6 F 12/21/16 07:00 Pulse 59 L 12/21/16 08:53 Resp 16 12/21/16 07:00 BP 166/81 H 12/21/16 08:53 Pulse Ox 91 L 12/21/16 07:00 Weight - most recent: 142 lb 9.59 oz I&O - last 24 hours: Intake & Output 12/20/16 12/21/16 12/21/16 22:59 06:59 14:59 Intake Total 1607 689 400 Output Total 325 100 Balance 1607 364 300 Lab Results last 24 hrs: Laboratory Results - last 24 hr 12/21/16 12/21/16 12/21/16 Range/Units 05:57 05:57 05:57 WBC 12.2 H (4.5-11.0) K/uL RBC 3.48 L (4.30-5.90) M/uL Hgb 10.5 L (12.0-15.0) g/dL Hct 32.9 L (40.0-54.0) % MCV 95 (80-98) fL MCH 30 (27-31) pg MCHC 32 (32-36) % Plt Count 146 L (150-400) K/uL Neut % (Auto) 79 H (36-66) % Lymph % (Auto) 9 L (24-44) % [place] % (Auto) 11 H (2-6) % Eos % (Auto) 2 (2-4) % Baso % (Auto) 0 (0-1) % PT 13.6 H (9.5-12.0) sec INR 1.26 H (0.80-1.20) Sodium 140 (140-148) mmol/L Potassium 3.8 (3.6-5.2) mmol/L Chloride 104 (100-108) mmol/L Carbon Dioxide 31 (21-32) mmol/L Anion Gap 5.0 (5.0-14.0) mmol/L BUN 26 H (7-18) mg/dL Creatinine 1.1 (0.8-1.3) mg/dL Est Cr Clr Drug Dosing 47.37 mL/min Estimated GFR (MDRD) > 60 (>60) Glucose 135 H (74-106) mg/dL Calcium 8.3 L (8.5-10.1) mg/dL Magnesium 2.0 D (1.8-2.4) mg/dL Topher Results last 24 hrs: Microbiology 12/19/16 17:30 Urine Culture - Final Urine, Clean Catch Escherichia Coli 12/19/16 17:26 Aerobic Blood Culture - Preliminary Blood - Venous - Lab Draw NO GROWTH AFTER 1 DAY Anaerobic Blood Culture - Preliminary NO GROWTH AFTER 1 DAY Med Orders - Current: Current Medications Acetaminophen (Tylenol) 650 mg PO Q4H PRN PRN Reason: Pain (Mild 1-3)/fever Albuterol (Proventil Neb Soln) 2.5 mg NEB Q4H PRN PRN Reason: Shortness Of Breath/wheezing Atenolol (Tenormin) 50 mg PO BID [facility] Last Admin: 12/21/16 08:53 Dose: 50 mg Atorvastatin Calcium (Lipitor) 20 mg PO BEDTIME [facility] Last Admin: 12/20/16 20:54 Dose: 20 mg Dextrose (Glutose 15) 15 gm PO ONETIME PRN PRN Reason: Hypoglycemia Dextrose/Water (Dextrose 50% In Water) 50 ml IV ONETIME PRN PRN Reason: Hypoglycemia Docusate Sodium (Colace) 100 mg PO BID PRN PRN Reason: Constipation Last Admin: 12/21/16 08:54 Dose: 100 mg Donepezil HCl (Aricept) 5 mg PO BEDTIME [facility] Last Admin: 12/20/16 20:54 Dose: 5 mg Furosemide (Lasix) 20 mg PO DAILY [facility] Last Admin: 12/21/16 08:51 Dose: 20 mg Ceftriaxone Sodium 1 gm/ (Sodium Chloride) 50 mls @ 100 mls/hr IV Q24H [facility] Last Admin: 12/20/16 18:51 Dose: 100 mls/hr Insulin Aspart (Novolog) 0 unit SUBCUT QIDACANDBED PRN; Protocol PRN Reason: Blood Glucose Last Admin: 12/20/16 20:58 Dose: 1 unit Magnesium Hydroxide (Milk Of Magnesia) 30 ml PO Q12H PRN PRN Reason: Constipation Last Admin: 12/21/16 08:55 Dose: 30 ml Melatonin (Melatonin) 9 mg PO BEDTIME [facility] Last Admin: 12/20/16 20:53 Dose: 9 mg Ondansetron HCl (Zofran) 4 mg IV Q4H PRN PRN Reason: Nausea/Vomiting Paroxetine HCl (Paxil) 5 mg PO DAILY [facility] Last Admin: 12/21/16 08:52 Dose: 5 mg Polyethylene Glycol (Miralax) 17 gm PO DAILY PRN PRN Reason: Constipation Sodium Chloride (Saline Flush) 10 ml FLUSH ASDIRECTED PRN PRN Reason: Keep Vein Open Warfarin Sodium (Coumadin) 2.5 mg PO SuTuThSa@1300 [facility] Last Admin: 12/20/16 14:35 Dose: 2.5 mg Warfarin Sodium (Coumadin) 5 mg PO MoWeFr@1300 [facility] Discontinued Medications Digoxin (Lanoxin) 250 mcg PO DAILY@1300 [facility] Lactated Ringer's (Ringers, Lactated) 1,000 mls @ 500 mls/hr IV ASDIRECTED [facility] Last Admin: 12/19/16 17:52 Dose: 500 mls/hr Lactated Ringer's (Ringers, Lactated) 1,000 mls @ 125 mls/hr IV ASDIRECTED [facility] Last Admin: 12/20/16 04:44 Dose: 125 mls/hr Lactated Ringer's (Ringers, Lactated) 1,000 mls @ 500 mls/hr IV ASDIRECTED [facility] Stop: 12/19/16 22:30 Magnesium Sulfate 2 gm/ Premix 50 mls @ 25 mls/hr IV Q6H [facility] Stop: 12/20/16 17:59 Last Admin: 12/20/16 16:22 Dose: 25 mls/hr Lactated Ringer's (Ringers, Lactated) 1,000 mls @ 50 mls/hr IV ASDIRECTED [facility] Last Admin: 12/21/16 02:48 Dose: 50 mls/hr Insulin Aspart (Novolog) 0 unit SUBCUT ASDIRECTED [facility] PRN Reason: Protocol - Exam Quality Assessment: DVT prophylaxis General: alert, cooperative, no acute distress Lungs: Clear to auscultation, Normal respiratory effort Cardiovascular: Regular Rate, Regular Rhythm, No Murmurs Abdomen: bowel sounds present, soft, no tenderness, no distension Extremities: no edema Skin: warm, dry, intact - Problem List Review Problem List Initiated/Reviewed/Updated: Yes - My Orders Last 24 Hours: My Active Orders 12/20/16 21:00 atorvaSTATin [Lipitor] 20 mg PO BEDTIME 12/21/16 11:03 Convert IV to Saline Lock [OM.PC] Routine 12/21/16 11:15 Tamsulosin [Flomax] 0.4 mg PO DAILY 12/21/16 11:30 GLUCOSE POC LAB TO COLLECT [POC] QIDACANDBED 12/21/16 13:00 Warfarin [Coumadin] 5 mg PO MoWeFr@1300 12/21/16 16:30 GLUCOSE POC LAB TO COLLECT [POC] QIDACANDBED 12/21/16 21:00 GLUCOSE POC LAB TO COLLECT [POC] QIDACANDBED 12/22/16 05:00 BASIC METABOLIC PANEL,BMP [CHEM] Timed CBC WITH AUTO DIFF [HEME] Timed INR,PT,PROTHROMBIN TIME [COAG] Timed MAGNESIUM [CHEM] Timed 12/22/16 07:30 GLUCOSE POC LAB TO COLLECT [POC] QIDACANDBED 12/22/16 11:30 GLUCOSE POC LAB TO COLLECT [POC] QIDACANDBED 12/22/16 16:30 GLUCOSE POC LAB TO COLLECT [POC] QIDACANDBED 12/22/16 21:00 GLUCOSE POC LAB TO COLLECT [POC] QIDACANDBED 12/23/16 07:30 GLUCOSE POC LAB TO COLLECT [POC] QIDACANDBED 12/23/16 11:30 GLUCOSE POC LAB TO COLLECT [POC] QIDACANDBED 12/23/16 16:30 GLUCOSE POC LAB TO COLLECT [POC] QIDACANDBED 12/23/16 21:00 GLUCOSE POC LAB TO COLLECT [POC] QIDACANDBED 12/24/16 07:30 GLUCOSE POC LAB TO COLLECT [POC] QIDACANDBED 12/24/16 11:30 GLUCOSE POC LAB TO COLLECT [POC] QIDACANDBED 12/24/16 16:30 GLUCOSE POC LAB TO COLLECT [POC] QIDACANDBED 12/24/16 21:00 GLUCOSE POC LAB TO COLLECT [POC] QIDACANDBED 12/25/16 07:30 GLUCOSE POC LAB TO COLLECT [POC] QIDACANDBED - Plan Plan:: ASSESSMENT AND PLAN URINARY TRACT INFECTION WITH EARLY SEPSIS-improved since admission, no further evidence of active sepsis, lactic acid level has normalized. -Blood cultures negative, urine culture growing pansensitive Escherichia coli -Saline lock IV -Discontinue Rocephin -Ciprofloxacin 500 mg by mouth twice a day BLADDER OUTLET OBSTRUCTION-likely secondary to BPH -Flomax 0.4 mg by mouth daily DEMENTIA -Continue outpatient medical regimen CHRONIC KIDNEY DISEASE STAGE III-renal function stable -Closely monitor urine output and renal function during hospital stay TYPE 2 DIABETES MELLITUS -Hold metformin -4 times a day glucometers -Low-dose sliding scale NovoLog ATRIAL FIBRILLATION-adequate rate control on current therapy -Continue beta irma and digoxin -Continue oral anticoagulation with warfarin -INR in a.m. MAINTENANCE ISSUES -DVT prophylaxis; current therapy with warfarin should provide adequate DVT prophylaxis -GI prophylaxis; not indicated -Robles catheter; not indicated -Nutrition; consistent carbohydrate diet -Nicotine dependence; not required CODE STATUS-FULL CODE ADMISSION STATUS-patient will be admitted to inpatient status, expect at least a 2 night hospital stay for evaluation and management of problems as outlined above. At the time of this admission I do not reasonably expected evaluation and management of this problem will require more than a 96 hour hospital stay. DISPOSITION-anticipate discharge to home after the hospital stay. PRIMARY CARE PROVIDER-Dr. Okeefe
[2016-12-21] MEDS: Ciprofloxacin 500 MG Tab PO SCH ×2 (12:01→20:52)
[2016-12-21] MEDS: Tamsulosin 0.4 MG Cap.ER PO SCH (12:02)
[2016-12-21] MEDS: Insulin Aspart 100 Units/ML 3 ML Pen SUBCUT PRN ×3 (12:21→20:58)
[2016-12-21] MEDS ORDERED: Warfarin 5 MG Tab PO SCH (13:00)
[2016-12-21] MEDS: atorvaSTATin 20 MG Tab PO SCH (20:51)
[2016-12-21] MEDS: Melatonin 3 MG Tab PO SCH (20:51)
[2016-12-21] MEDS: Donepezil 10 MG Tab PO SCH (20:53)
[2016-12-22] MEDS: Ciprofloxacin 500 MG Tab PO SCH (08:22)
[2016-12-22] MEDS: Tamsulosin 0.4 MG Cap.ER PO SCH (08:22)
[2016-12-22] MEDS: Atenolol 50 MG Tab PO SCH (08:22)
[2016-12-22] MEDS: PARoxetine 20 MG Tab PO SCH (08:22)
[2016-12-22] MEDS: Furosemide 20 MG Tab PO SCH (08:23)
[2016-12-22 11:28] VITALS: BP 110/62
[2016-12-22] MEDS: Insulin Aspart 100 Units/ML 3 ML Pen SUBCUT PRN (12:00)
--- NOTE | 2016-12-22 12:07 | PCM.DCSUM1 ---
Discharge Summary - Hospital Course Brief History: This patient is an 81-year-old gentleman who was admitted through the emergency department with sepsis secondary to urinary tract infection. - Discharge Data Discharge Date: 12/22/16 Discharge Disposition: Home, Self-Care 01 Condition: Fair - Discharge Diagnosis/Problem(s) (1) Sepsis secondary to UTI SNOMED Code(s): 202227347 ICD Code: A41.9 - SEPSIS, UNSPECIFIED ORGANISM; N39.0 - URINARY TRACT INFECTION, SITE NOT SPECIFIED Status: Acute Current Visit: Yes (2) Weakness SNOMED Code(s): 77795443 ICD Code: R53.1 - WEAKNESS Status: Acute Current Visit: Yes (3) CKD (chronic kidney disease) stage 3, GFR 30-59 ml/min SNOMED Code(s): 413086432 ICD Code: N18.3 - CHRONIC KIDNEY DISEASE, STAGE 3 (MODERATE) Status: Acute Current Visit: Yes (4) Atrial fibrillation SNOMED Code(s): 43990163 ICD Code: I48.91 - UNSPECIFIED ATRIAL FIBRILLATION Status: Acute Current Visit: Yes - Patient Summary/Data Hospital Course: This patient is an 81-year-old gentleman who would become progressively more weak and lethargic at home. He was brought into the emergency department for further evaluation, white blood cell count was elevated and urinalysis showed evidence of obvious infection. Elevated temperature, white blood cell, and lactic acid level were all consistent with associated sepsis. He was given IV fluids per protocol including 30 mL/kg. He remained hemodynamically stable following this intervention. He was continued on IV fluids and started on IV antibiotic therapy with Rocephin after blood cultures and urine culture had been obtained. Urine culture did later grow out pansensitive Escherichia coli. Improved significantly during his hospital course and by the time of discharge was more alert and interactive. He is on long-term oral anticoagulation with warfarin, he was continued on his usual dose of medication and daily INR levels were obtained during the hospital stay. By the time of discharge his INR level remained subtherapeutic but dose was not changed because of potential interaction between warfarin and oral antibiotic therapy with ciprofloxacin. He will receive an additional 4 days of oral ciprofloxacin. Follow-up INR level will be obtained in 2 days and home care will be arranged for the patient after discharge. Follow-up appointment will be scheduled with his primary care provider within one week. Activity will be as tolerated and he will resume his usual diet. - Patient Instructions Diet: Usual Diet as Tolerated Activity: As Tolerated Other/Special Instructions: Please arrange for home care follow-up after discharge. Home care should draw lab for ET INR in 2 days. Please schedule follow-up appointment with primary care provider Dr. Okeefe within one week. - Discharge Plan Prescriptions/Med Rec: Ciprofloxacin [Ciprofloxacin HCl] 500 mg PO BID #8 tablet Home Medications: Home Meds Atenolol 50 mg PO BID 07/08/13 [History] Digoxin 0.25 mg PO DAILY 07/08/13 [History] metFORMIN [Glucophage] 1,000 mg PO BIDM 07/08/13 [History] Acetaminophen [Tylenol] 650 mg PO Q6H PRN #120 tab 07/19/13 [Rx] Donepezil [Aricept] 5 mg PO BEDTIME 12/19/16 [History] Furosemide 20 mg PO DAILY 12/19/16 [History] PARoxetine [Paxil] 5 mg PO DAILY 12/19/16 [History] atorvaSTATin [Lipitor] 20 mg PO DAILY 12/19/16 [History] Warfarin [Coumadin] 2.5 mg PO SUTUTHSA@1300 12/20/16 [History] Warfarin [Coumadin] 5 mg PO MOWEFR 12/20/16 [History] Ciprofloxacin [Ciprofloxacin HCl] 500 mg PO BID #8 tablet 12/22/16 [Rx] Referrals: Terrell Okeefe MD [Primary Care Provider] - - Patient Data Vitals - Most Recent: Last Vital Signs Temp 97.5 F 12/22/16 11:00 Pulse 76 12/22/16 11:00 Resp 18 12/22/16 11:00 BP 110/62 12/22/16 11:00 Pulse Ox 94 L 12/22/16 11:00 Weight - Most Recent: 142 lb 9.59 oz I&O - Last 24 hours: Intake & Output 12/21/16 12/22/16 12/22/16 22:59 06:59 14:59 Intake Total 490 600 Output Total 300 Balance 190 600 Lab Results - Last 24 hrs: Laboratory Results - last 24 hr 12/22/16 12/22/16 12/22/16 Range/Units 05:05 05:05 05:05 WBC 8.7 (4.5-11.0) K/uL RBC 3.31 L (4.30-5.90) M/uL Hgb 9.9 L (12.0-15.0) g/dL Hct 31.5 L (40.0-54.0) % MCV 95 (80-98) fL MCH 30 (27-31) pg MCHC 31 L (32-36) % Plt Count 165 (150-400) K/uL Neut % (Auto) 72 H (36-66) % Lymph % (Auto) 12 L (24-44) % [place] % (Auto) 13 H (2-6) % Eos % (Auto) 3 (2-4) % Baso % (Auto) 0 (0-1) % PT 13.7 H (9.5-12.0) sec INR 1.27 H (0.80-1.20) Sodium 140 (140-148) mmol/L Potassium 4.0 (3.6-5.2) mmol/L Chloride 104 (100-108) mmol/L Carbon Dioxide 31 (21-32) mmol/L Anion Gap 4.7 L (5.0-14.0) mmol/L BUN 28 H (7-18) mg/dL Creatinine 1.2 (0.8-1.3) mg/dL Est Cr Clr Drug Dosing 43.42 mL/min Estimated GFR (MDRD) 58 L (>60) Glucose 126 H (74-106) mg/dL Calcium 7.9 L (8.5-10.1) mg/dL Magnesium 2.0 (1.8-2.4) mg/dL [place] Results - Last 24 hrs: Microbiology 12/19/16 17:26 Aerobic Blood Culture - Preliminary Blood - Venous - Lab Draw NO GROWTH AFTER 2 DAYS Anaerobic Blood Culture - Preliminary NO GROWTH AFTER 2 DAYS 12/19/16 17:30 Urine Culture - Final Urine, Clean Catch Escherichia Coli Med Orders - Current: Current Medications Acetaminophen (Tylenol) 650 mg PO Q4H PRN PRN Reason: Pain (Mild 1-3)/fever Albuterol (Proventil Neb Soln) 2.5 mg NEB Q4H PRN PRN Reason: Shortness Of Breath/wheezing Atenolol (Tenormin) 50 mg PO BID MARY Last Admin: 12/22/16 08:22 Dose: 50 mg Atorvastatin Calcium (Lipitor) 20 mg PO BEDTIME [facility] Last Admin: 12/21/16 20:51 Dose: 20 mg Ciprofloxacin (Ciprofloxacin Hcl) 500 mg PO BID [facility] Last Admin: 12/22/16 08:22 Dose: 500 mg Dextrose (Glutose 15) 15 gm PO ONETIME PRN PRN Reason: Hypoglycemia Dextrose/Water (Dextrose 50% In Water) 50 ml IV ONETIME PRN PRN Reason: Hypoglycemia Docusate Sodium (Colace) 100 mg PO BID PRN PRN Reason: Constipation Last Admin: 12/21/16 08:54 Dose: 100 mg Donepezil HCl (Aricept) 5 mg PO BEDTIME [facility] Last Admin: 12/21/16 20:53 Dose: 5 mg Furosemide (Lasix) 20 mg PO DAILY [facility] Last Admin: 12/22/16 08:23 Dose: 20 mg Insulin Aspart (Novolog) 0 unit SUBCUT QIDACANDBED PRN; Protocol PRN Reason: Blood Glucose Last Admin: 12/22/16 12:00 Dose: 2 unit Magnesium Hydroxide (Milk Of Magnesia) 30 ml PO Q12H PRN PRN Reason: Constipation Last Admin: 12/21/16 08:55 Dose: 30 ml Melatonin (Melatonin) 9 mg PO BEDTIME [facility] Last Admin: 12/21/16 20:51 Dose: 9 mg Ondansetron HCl (Zofran) 4 mg IV Q4H PRN PRN Reason: Nausea/Vomiting Paroxetine HCl (Paxil) 5 mg PO DAILY [facility] Last Admin: 12/22/16 08:22 Dose: 5 mg Polyethylene Glycol (Miralax) 17 gm PO DAILY PRN PRN Reason: Constipation Sodium Chloride (Saline Flush) 10 ml FLUSH ASDIRECTED PRN PRN Reason: Keep Vein Open Tamsulosin HCl (Flomax) 0.4 mg PO DAILY [facility] Last Admin: 12/22/16 08:22 Dose: 0.4 mg Warfarin Sodium (Coumadin) 2.5 mg PO SuTuThSa@1300 [facility] Last Admin: 12/20/16 14:35 Dose: 2.5 mg Warfarin Sodium (Coumadin) 5 mg PO MoWeFr@1300 [facility] Last Admin: 12/21/16 13:42 Dose: 5 mg Discontinued Medications Digoxin (Lanoxin) 250 mcg PO DAILY@1300 [facility] Lactated Ringer's (Ringers, Lactated) 1,000 mls @ 500 mls/hr IV ASDIRECTED [facility] Last Admin: 12/19/16 17:52 Dose: 500 mls/hr Ceftriaxone Sodium 1 gm/ (Sodium Chloride) 50 mls @ 100 mls/hr IV Q24H [facility] Last Admin: 12/20/16 18:51 Dose: 100 mls/hr Lactated Ringer's (Ringers, Lactated) 1,000 mls @ 125 mls/hr IV ASDIRECTED [facility] Last Admin: 12/20/16 04:44 Dose: 125 mls/hr Lactated Ringer's (Ringers, Lactated) 1,000 mls @ 500 mls/hr IV ASDIRECTED [facility] Stop: 12/19/16 22:30 Magnesium Sulfate 2 gm/ Premix 50 mls @ 25 mls/hr IV Q6H [facility] Stop: 12/20/16 17:59 Last Admin: 12/20/16 16:22 Dose: 25 mls/hr Lactated Ringer's (Ringers, Lactated) 1,000 mls @ 50 mls/hr IV ASDIRECTED [facility] Last Admin: 12/21/16 02:48 Dose: 50 mls/hr Insulin Aspart (Novolog) 0 unit SUBCUT ASDIRECTED [facility] PRN Reason: Protocol *Q Meaningful Use (DIS) - VTE *Q VTE Criteria *Q: VTE Pharmacological Contraindications *Q: High INR Value - Stroke *Q Stroke Criteria *Q: - AMI *Q AMI Criteria *Q:
[2016-12-22] MEDS: Warfarin 2.5 MG Tab PO SCH (13:17)
== END 2016-12-22 14:31 | disposition home or self-care (01) | DRG 872 ==
LOC: JP.ED 15:35 → UNDOADMIN 17:16 → JP.2SS 17:16 → UNDODISIN 12-22 14:31
PROVIDERS: ADMIT Hospitalist; ATTEND Hospitalist
DX: A41.9 Sepsis, unspecified organism (principal); N39.0 Urinary tract infection, site not specified; N13.8 Other obstructive and reflux uropathy; E11.22 Type 2 diabetes mellitus with diabetic chronic kidney disease; I12.9 Hypertensive chronic kidney disease with stage 1 through stage 4 chronic kidney disease, or unspecified chronic kidney disease; N18.3 Chronic kidney disease, stage 3 (moderate); G30.9 Alzheimer's disease, unspecified; F02.80 Dementia in other diseases classified elsewhere, unspecified severity, without behavioral disturbance, psychotic disturbance, mood disturbance, and anxiety; I48.91 Unspecified atrial fibrillation; Z79.01 Long term (current) use of anticoagulants; Z79.84 Long term (current) use of oral hypoglycemic drugs; B96.20 Unspecified Escherichia coli [E. coli] as the cause of diseases classified elsewhere; N40.1 Benign prostatic hyperplasia with lower urinary tract symptoms; M19.90 Unspecified osteoarthritis, unspecified site; E78.00 Pure hypercholesterolemia, unspecified; Z86.718 Personal history of other venous thrombosis and embolism; H91.90 Unspecified hearing loss, unspecified ear; H54.7 Unspecified visual loss
CPT/HCPCS: 36415; 51798; 80048; 80053; 80162; 81001; 82962; 83605; 83735; 85025; 85610; 87040; 87086; 87088; 87186; 96365; 99284; 99284-25; A9270-GY; J0696; J3475; J7050; J7120

== ENCOUNTER 2016-12-29 15:16 | Inpatient (IN) | payer MEDICARE, BC, MEDICAID ==
[2016-12-29] MEDS ORDERED: Sodium Chloride 0.9% 1,000 ML IV SCH ×2 (16:00→18:46)
--- NOTE | 2016-12-29 16:10 | EDM.PDOC ---
ED HPI GENERAL MEDICAL PROBLEM - General Chief Complaint: General Stated Complaint: SENT FROM CLINIC Time Seen by Provider: 12/29/16 16:08 Source of Information: Reports: Patient, Family History Limitations: Reports: No Limitations - History of Present Illness INITIAL COMMENTS - FREE TEXT/NARRATIVE: pt has been incontinent of urine and stool. He was in the hosp recently with a urisepsis. He really has not gained his strength. He is trying to void about every 15 minutes at times. Duration: Day(s): Associated Symptoms: Reports: Shortness of Breath, Other ( urinary frequency, ) Denies Pain Score (Numeric/FACES): 0 - Related Data Allergies Allergy/AdvReac Type Severity Reaction Status Date / Time No Known Allergies Allergy Verified 12/29/16 15:36 Home Meds: Home Meds Atenolol 50 mg PO BID 07/08/13 [History] Digoxin 0.25 mg PO DAILY 07/08/13 [History] metFORMIN [Glucophage] 1,000 mg PO BIDM 07/08/13 [History] Acetaminophen [Tylenol] 650 mg PO Q6H PRN #120 tab 07/19/13 [Rx] Donepezil [Aricept] 5 mg PO BEDTIME 12/19/16 [History] Furosemide 20 mg PO DAILY 12/19/16 [History] PARoxetine [Paxil] 5 mg PO DAILY 12/19/16 [History] atorvaSTATin [Lipitor] 20 mg PO DAILY 12/19/16 [History] Warfarin [Coumadin] 5 mg PO ASDIRECTED 12/20/16 [History] Warfarin [Coumadin] 7.5 mg PO ASDIRECTED 12/20/16 [History] Past Medical History HEENT History: Reports: Hard of Hearing, Impaired Vision Cardiovascular History: Reports: Arrhythmia, Blood Clots/VTE/DVT, High Cholesterol, Hypertension Genitourinary History: Reports: Other (See Below) Other Genitourinary History: UTI Musculoskeletal History: Reports: Fracture, Osteoarthritis, Other (See Below) Other Musculoskeletal History: pelvic fracture Neurological History: Reports: Alzheimers Disease Psychiatric History: Reports: Depression Other Psychiatric History: unable to obtain Endocrine/Metabolic History: Reports: Diabetes, Type II Hematologic History: Reports: Blood Transfusion(s) Other Hematologic History: unable to obtain Other Immunologic History: unable to obtain Dermatologic History: Reports: Cellulitis - Infectious Disease History Infectious Disease History: Reports: Chicken Pox, Measles, Mumps, Shingles - Past Surgical History Other Respiratory Surgeries/Procedures: unable to obtain GI Surgical History: Reports: Colonoscopy Social & Family History - Family History Family Medical History: Noncontributory - Tobacco Use Smoking Status *Q: Never Smoker Second Hand Smoke Exposure: No - Caffeine Use Caffeine Use: Reports: Coffee, Soda Caffeine Use Comment: unable to obtain - Alcohol Use Days Per Week of Alcohol Use: 0 Number of Drinks Per Day: 0 Total Drinks Per Week: 0 - Recreational Drug Use Recreational Drug Use: No ED ROS GENERAL - Review of Systems Review Of Systems: See Below Constitutional: Reports: Malaise, Weakness, Other (pt is sleeping as much as 12 hours per day. ) HEENT: Reports: No Symptoms Respiratory: Reports: No Symptoms Cardiovascular: Reports: No Symptoms Endocrine: Reports: No Symptoms GI/Abdominal: Reports: Decreased Appetite, Other ( incontinent of stool and urine. ) : Reports: Frequency, Incontinence Skin: Reports: No Symptoms Neurological: Reports: No Symptoms ED EXAM, GENERAL - Physical Exam Exam: See Below Free Text/Narrative:: pt arrived with urinary frequency and incontinence of stool. He is very weak and has been sleeping 10 to 12 hours daily. He is very weak and prone to fall. Exam Limited By: No Limitations General Appearance: Alert, Other (pt does have some dementia. ) Ears: Normal TMs Nose: Normal Inspection Throat/Mouth: Normal Inspection Head: Atraumatic Neck: Normal Inspection Respiratory/Chest: Decreased Breath Sounds Cardiovascular: Regular Rate, Rhythm GI/Abdominal: Soft, Non-Tender (Male) Exam: Deferred, Other ( bladder scan shows a residual of 175. ) Rectal (Males) Exam: Other ( pt has soft stool in the rectum with no impaction) Back Exam: Normal Inspection Extremities: Normal Inspection Neurological: Alert, Oriented, Normal Cognition Psychiatric: Normal Affect Course - Vital Signs Last Recorded V/S: Last Vital Signs Temp 36.3 C 12/29/16 15:53 Pulse 52 L 12/29/16 17:02 Resp 20 12/29/16 17:02 BP 173/97 H 12/29/16 17:02 Pulse Ox 95 12/29/16 17:02 - Orders/Labs/Meds Orders: Active Orders 24 hr Category Date Time Status Chest 2V [CR] Stat Exams 12/29/16 16:06 Taken CULTURE URINE [RM] Stat Lab 12/29/16 17:06 Received Sodium Chloride 0.9% [Normal Saline] 1,000 ml Med 12/29/16 16:00 Active IV ASDIRECTED Medication Orders Sodium Chloride (Normal Saline) 1,000 mls @ 999 mls/hr IV ASDIRECTED MARY Last Admin: 12/29/16 16:34 Dose: 999 mls/hr Labs: Laboratory Tests 12/29/16 12/29/16 12/29/16 Range/Units 16:01 16:01 16:01 WBC 10.1 (4.5-11.0) K/uL RBC 4.20 L (4.30-5.90) M/uL Hgb 13.0 D (12.0-15.0) g/dL Hct 39.4 L (40.0-54.0) % MCV 94 (80-98) fL MCH 31 (27-31) pg MCHC 33 (32-36) % Plt Count 250 (150-400) K/uL Neut % (Auto) 81 H (36-66) % Lymph % (Auto) 10 L (24-44) % [place] % (Auto) 8 H (2-6) % Eos % (Auto) 2 (2-4) % Baso % (Auto) 1 (0-1) % PT (9.5-12.0) sec INR (0.80-1.20) Sodium 139 L (140-148) mmol/L Potassium 4.3 (3.6-5.2) mmol/L Chloride 101 (100-108) mmol/L Carbon Dioxide 32 (21-32) mmol/L Anion Gap 10.3 (5.0-14.0) mmol/L BUN 21 H (7-18) mg/dL Creatinine 1.1 (0.8-1.3) mg/dL Est Cr Clr Drug Dosing 46.17 mL/min Estimated GFR (MDRD) > 60 (>60) Glucose 103 (74-106) mg/dL Lactic Acid 1.4 (0.4-2.0) mmol/L Calcium 8.8 (8.5-10.1) mg/dL Total Bilirubin 1.2 H (0.2-1.0) mg/dL AST 27 (15-37) U/L ALT 26 (12-78) U/L Alkaline Phosphatase 83 (46-116) U/L C-Reactive Protein (0.0-0.3) mg/dL Total Protein 7.8 (6.4-8.2) g/dL Albumin 3.3 L (3.4-5.0) g/dL Globulin 4.5 H (2.3-3.5) g/dL Albumin/Globulin Ratio 0.7 L (1.2-2.2) Urine Color Urine Appearance Urine pH (4.5-8.0) Ur Specific [place] (1.008-1.030) Urine Protein (NEGATIVE) mg/dL Urine Glucose (UA) (NEGATIVE) mg/dL Urine Ketones (NEGATIVE) mg/dL Urine Occult Blood (NEGATIVE) Urine Nitrite (NEGAITVE) Urine Bilirubin (NEGATIVE) Urine Urobilinogen (NORMAL) mg/dL Ur Leukocyte Esterase (NEGATIVE) Urine RBC (0-5) Urine WBC (0-5) Ur Epithelial Cells Amorphous Sediment Urine Bacteria Urine Mucus Digoxin (0.90-2.00) ng/mL 12/29/16 12/29/16 12/29/16 Range/Units 16:01 16:07 16:08 WBC (4.5-11.0) K/uL RBC (4.30-5.90) M/uL Hgb (12.0-15.0) g/dL Hct (40.0-54.0) % MCV (80-98) fL MCH (27-31) pg MCHC (32-36) % Plt Count (150-400) K/uL Neut % (Auto) (36-66) % Lymph % (Auto) (24-44) % [place] % (Auto) (2-6) % Eos % (Auto) (2-4) % Baso % (Auto) (0-1) % PT 22.1 H (9.5-12.0) sec INR 2.01 H (0.80-1.20) Sodium (140-148) mmol/L Potassium (3.6-5.2) mmol/L Chloride (100-108) mmol/L Carbon Dioxide (21-32) mmol/L Anion Gap (5.0-14.0) mmol/L BUN (7-18) mg/dL Creatinine (0.8-1.3) mg/dL Est Cr Clr Drug Dosing mL/min Estimated GFR (MDRD) (>60) Glucose (74-106) mg/dL Lactic Acid (0.4-2.0) mmol/L Calcium (8.5-10.1) mg/dL Total Bilirubin (0.2-1.0) mg/dL AST (15-37) U/L ALT (12-78) U/L Alkaline Phosphatase (46-116) U/L C-Reactive Protein 0.50 H (0.0-0.3) mg/dL Total Protein (6.4-8.2) g/dL Albumin (3.4-5.0) g/dL Globulin (2.3-3.5) g/dL Albumin/Globulin Ratio (1.2-2.2) Urine Color Urine Appearance Urine pH (4.5-8.0) Ur Specific [place] (1.008-1.030) Urine Protein (NEGATIVE) mg/dL Urine Glucose (UA) (NEGATIVE) mg/dL Urine Ketones (NEGATIVE) mg/dL Urine Occult Blood (NEGATIVE) Urine Nitrite (NEGAITVE) Urine Bilirubin (NEGATIVE) Urine Urobilinogen (NORMAL) mg/dL Ur Leukocyte Esterase (NEGATIVE) Urine RBC (0-5) Urine WBC (0-5) Ur Epithelial Cells Amorphous Sediment Urine Bacteria Urine Mucus Digoxin 2.63 H (0.90-2.00) ng/mL //17 Range/Units 16:19 WBC (4.5-11.0) K/uL RBC (4.30-5.90) M/uL Hgb (12.0-15.0) g/dL Hct (40.0-54.0) % MCV (80-98) fL MCH (27-31) pg MCHC (32-36) % Plt Count (150-400) K/uL Neut % (Auto) (36-66) % Lymph % (Auto) (24-44) % [place] % (Auto) (2-6) % Eos % (Auto) (2-4) % Baso % (Auto) (0-1) % PT (9.5-12.0) sec INR (0.80-1.20) Sodium (140-148) mmol/L Potassium (3.6-5.2) mmol/L Chloride (100-108) mmol/L Carbon Dioxide (21-32) mmol/L Anion Gap (5.0-14.0) mmol/L BUN (7-18) mg/dL Creatinine (0.8-1.3) mg/dL Est Cr Clr Drug Dosing mL/min Estimated GFR (MDRD) (>60) Glucose (74-106) mg/dL Lactic Acid (0.4-2.0) mmol/L Calcium (8.5-10.1) mg/dL Total Bilirubin (0.2-1.0) mg/dL AST (15-37) U/L ALT (12-78) U/L Alkaline Phosphatase (46-116) U/L C-Reactive Protein (0.0-0.3) mg/dL Total Protein (6.4-8.2) g/dL Albumin (3.4-5.0) g/dL Globulin (2.3-3.5) g/dL Albumin/Globulin Ratio (1.2-2.2) Urine Color Yellow Urine Appearance Clear Urine pH 5.0 (4.5-8.0) Ur Specific [place] 1.015 (1.008-1.030) Urine Protein 30 H (NEGATIVE) mg/dL Urine Glucose (UA) Normal (NEGATIVE) mg/dL Urine Ketones Negative (NEGATIVE) mg/dL Urine Occult Blood Moderate (NEGATIVE) Urine Nitrite Negative (NEGAITVE) Urine Bilirubin Negative (NEGATIVE) Urine Urobilinogen Normal (NORMAL) mg/dL Ur Leukocyte Esterase Negative (NEGATIVE) Urine RBC 10-20 H (0-5) Urine WBC 0-5 (0-5) Ur Epithelial Cells Not seen Amorphous Sediment Not seen Urine Bacteria Not seen Urine Mucus Not seen Digoxin (0.90-2.00) ng/mL Meds: Medications Generic Name Dose Route Start Last Admin Trade Name Freq PRN Reason Stop Dose Admin Sodium Chloride 1,000 mls @ 999 mls/hr 12/29/16 16:00 12/29/16 16:34 Normal Saline IV 999 mls/hr ASDIRECTED [facility] Administration - Re-Assessments/Exams Free Text/Narrative Re-Assessment/Exam: 12/29/16 17:10 urine has rbcs but not alot of bacteria, His chest did not show a definite infiltrate, His chem look good, lactic acid is not elevated. Departure - Departure Time of Disposition: 17:12 Disposition: Admitted As Inpatient 65 Condition: Fair Clinical Impression: Dehydration, Weakness, Incontinent of feces - Discharge Information Forms: ED Department Discharge Care Plan Goals: admit to Dr russell. - My Orders Last 24 Hours: My Active Orders 12/29/16 16:00 Sodium Chloride 0.9% [Normal Saline] 1,000 ml IV ASDIRECTED 12/29/16 16:06 Chest 2V [CR] Stat 12/29/16 17:06 CULTURE URINE [RM] Stat - Assessment/Plan Last 24 Hours: My Active Orders 12/29/16 16:00 Sodium Chloride 0.9% [Normal Saline] 1,000 ml IV ASDIRECTED 12/29/16 16:06 Chest 2V [CR] Stat 12/29/16 17:06 CULTURE URINE [RM] Stat
--- NOTE | 2016-12-29 17:59 | PCM.HP ---
H&P History of Present Illness - General Date of Service: 12/29/16 Admit Problem/Dx: Admission Diagnosis/Problem Admission Diagnosis/Problem Weakness Source of Information: Patient, Provider History Limitations: Reports: No Limitations - History of Present Illness Initial Comments - Free Text/Narative: Teodora presents to the emergency room today with generalized weakness as well as urinary frequency and urgency and bowel incontinence. He was discharged from the hospital one week ago and has not recovered his strength since that time. Over the past couple of days he has noticed increased urinary urgency and frequency. No hematuria has been noted. He has also had some difficulty with bowel incontinence which she describes as passing a small quantities of stool without realizing it. He has not had any blood in his stool. He has not had a good bowel movement in several days. No complaints of headache, shortness of breath, cough or abdominal pain. No nausea or vomiting. Appetite has not been good and he has not had much in the way of fluids over the past few days. His energy and strength are decreased from baseline but he is able to get in and out of bed on his own. No fevers or chills. No sick contacts. He has completed a one-week course of antibiotics. Workup in the emergency room has been relatively reassuring other than an elevated digoxin level. There is no strong evidence for active infection at this time. With his weakness, elevated digoxin level and incontinence he is not safe for outpatient management. He will be admitted for further workup and management. Denies Pain Score (Numeric/FACES): 0 - Related Data Allergies/Adverse Reactions: Allergies Allergy/AdvReac Type Severity Reaction Status Date / Time No Known Allergies Allergy Verified 12/29/16 15:36 Home Medications: Home Meds Atenolol 50 mg PO BID 07/08/13 [History] Digoxin 0.25 mg PO DAILY 07/08/13 [History] metFORMIN [Glucophage] 1,000 mg PO BIDM 07/08/13 [History] Acetaminophen [Tylenol] 650 mg PO Q6H PRN #120 tab 07/19/13 [Rx] Donepezil [Aricept] 5 mg PO BEDTIME 12/19/16 [History] Furosemide 20 mg PO DAILY 12/19/16 [History] PARoxetine [Paxil] 5 mg PO DAILY 12/19/16 [History] atorvaSTATin [Lipitor] 20 mg PO DAILY 12/19/16 [History] Warfarin [Coumadin] 5 mg PO ASDIRECTED 12/20/16 [History] Warfarin [Coumadin] 2.5 mg PO ASDIRECTED 12/29/16 [History] Past Medical History HEENT History: Reports: Hard of Hearing, Impaired Vision Cardiovascular History: Reports: Arrhythmia, Blood Clots/VTE/DVT, High Cholesterol, Hypertension Genitourinary History: Reports: Other (See Below) Other Genitourinary History: UTI Musculoskeletal History: Reports: Fracture, Osteoarthritis, Other (See Below) Other Musculoskeletal History: pelvic fracture Neurological History: Reports: Alzheimers Disease Psychiatric History: Reports: Depression Other Psychiatric History: unable to obtain Endocrine/Metabolic History: Reports: Diabetes, Type II Hematologic History: Reports: Blood Transfusion(s) Other Hematologic History: unable to obtain Other Immunologic History: unable to obtain Dermatologic History: Reports: Cellulitis - Infectious Disease History Infectious Disease History: Reports: Chicken Pox, Measles, Mumps, Shingles - Past Surgical History Other Respiratory Surgeries/Procedures: unable to obtain GI Surgical History: Reports: Colonoscopy Social & Family History - Family History Family Medical History: Noncontributory - Tobacco Use Smoking Status *Q: Never Smoker Second Hand Smoke Exposure: No - Caffeine Use Caffeine Use: Reports: Coffee, Soda Caffeine Use Comment: unable to obtain - Alcohol Use Days Per Week of Alcohol Use: 0 Number of Drinks Per Day: 0 Total Drinks Per Week: 0 - Recreational Drug Use Recreational Drug Use: No H&P Review of Systems - Review of Systems: Review Of Systems: See Below Free Text/Narrative: A complete 12 point review of systems was obtained. Pertinent positives and negatives are noted in the history of present illness. All other systems were reviewed and were negative except as noted. Exam - Exam Exam: See Below - Vital Signs Vital Signs: Last Vital Signs Temp 36.3 C 12/29/16 15:53 Pulse 52 L 12/29/16 17:02 Resp 20 12/29/16 17:02 BP 173/97 H 12/29/16 17:02 Pulse Ox 95 12/29/16 17:02 Weight: 63.049 kg - Exam Quality Assessment: No: Supplemental Oxygen General: Alert, Oriented, Cooperative. No: Mild Distress HEENT: Conjunctiva Clear, Normal Nasal Septum. No: Mucosa Moist & [place] (dry), Scleral Icterus Neck: Supple, Trachea Midline. No: Lymphadenopathy, JVD Lungs: Clear to Auscultation, Normal Respiratory Effort Cardiovascular: Regular Rate, Irregular Rhythm. No: Systolic Murmur GI/Abdominal Exam: Normal Bowel Sounds, Soft, Non-Tender, No Distention Back Exam: Normal Inspection, Full Range of Motion Extremities: Normal Inspection, No Pedal Edema Peripheral Pulses: 2+: Dorsalis Pedis (L), Dorsalis Pedis (R) Skin: Warm, Dry Neuro Extensive - Mental Status: Alert, Nl Response to Commands Neuro Extensive - Motor, Sensory, Reflexes: CN II-XII Intact. No: Dysarthria, Abnormal Motor, Tremor Psychiatric: Alert, Normal Affect - Patient Data Lab Results Last 24 hrs: Laboratory Results - last 24 hr 12/29/16 12/29/16 12/29/16 Range/Units 16:01 16:01 16:01 WBC 10.1 (4.5-11.0) K/uL RBC 4.20 L (4.30-5.90) M/uL Hgb 13.0 D (12.0-15.0) g/dL Hct 39.4 L (40.0-54.0) % MCV 94 (80-98) fL MCH 31 (27-31) pg MCHC 33 (32-36) % Plt Count 250 (150-400) K/uL Neut % (Auto) 81 H (36-66) % Lymph % (Auto) 10 L (24-44) % [place] % (Auto) 8 H (2-6) % Eos % (Auto) 2 (2-4) % Baso % (Auto) 1 (0-1) % PT (9.5-12.0) sec INR (0.80-1.20) Sodium 139 L (140-148) mmol/L Potassium 4.3 (3.6-5.2) mmol/L Chloride 101 (100-108) mmol/L Carbon Dioxide 32 (21-32) mmol/L Anion Gap 10.3 (5.0-14.0) mmol/L BUN 21 H (7-18) mg/dL Creatinine 1.1 (0.8-1.3) mg/dL Est Cr Clr Drug Dosing 46.17 mL/min Estimated GFR (MDRD) > 60 (>60) Glucose 103 (74-106) mg/dL Lactic Acid 1.4 (0.4-2.0) mmol/L Calcium 8.8 (8.5-10.1) mg/dL Total Bilirubin 1.2 H (0.2-1.0) mg/dL AST 27 (15-37) U/L ALT 26 (12-78) U/L Alkaline Phosphatase 83 (46-116) U/L C-Reactive Protein (0.0-0.3) mg/dL Total Protein 7.8 (6.4-8.2) g/dL Albumin 3.3 L (3.4-5.0) g/dL Globulin 4.5 H (2.3-3.5) g/dL Albumin/Globulin Ratio 0.7 L (1.2-2.2) Urine Color Urine Appearance Urine pH (4.5-8.0) Ur Specific [place] (1.008-1.030) Urine Protein (NEGATIVE) mg/dL Urine Glucose (UA) (NEGATIVE) mg/dL Urine Ketones (NEGATIVE) mg/dL Urine Occult Blood (NEGATIVE) Urine Nitrite (NEGAITVE) Urine Bilirubin (NEGATIVE) Urine Urobilinogen (NORMAL) mg/dL Ur Leukocyte Esterase (NEGATIVE) Urine RBC (0-5) Urine WBC (0-5) Ur Epithelial Cells Amorphous Sediment Urine Bacteria Urine Mucus Digoxin (0.90-2.00) ng/mL 12/29/16 12/29/16 12/29/16 Range/Units 16:01 16:07 16:08 WBC (4.5-11.0) K/uL RBC (4.30-5.90) M/uL Hgb (12.0-15.0) g/dL Hct (40.0-54.0) % MCV (80-98) fL MCH (27-31) pg MCHC (32-36) % Plt Count (150-400) K/uL Neut % (Auto) (36-66) % Lymph % (Auto) (24-44) % [place] % (Auto) (2-6) % Eos % (Auto) (2-4) % Baso % (Auto) (0-1) % PT 22.1 H (9.5-12.0) sec INR 2.01 H (0.80-1.20) Sodium (140-148) mmol/L Potassium (3.6-5.2) mmol/L Chloride (100-108) mmol/L Carbon Dioxide (21-32) mmol/L Anion Gap (5.0-14.0) mmol/L BUN (7-18) mg/dL Creatinine (0.8-1.3) mg/dL Est Cr Clr Drug Dosing mL/min Estimated GFR (MDRD) (>60) Glucose (74-106) mg/dL Lactic Acid (0.4-2.0) mmol/L Calcium (8.5-10.1) mg/dL Total Bilirubin (0.2-1.0) mg/dL AST (15-37) U/L ALT (12-78) U/L Alkaline Phosphatase (46-116) U/L C-Reactive Protein 0.50 H (0.0-0.3) mg/dL Total Protein (6.4-8.2) g/dL Albumin (3.4-5.0) g/dL Globulin (2.3-3.5) g/dL Albumin/Globulin Ratio (1.2-2.2) Urine Color Urine Appearance Urine pH (4.5-8.0) Ur Specific [place] (1.008-1.030) Urine Protein (NEGATIVE) mg/dL Urine Glucose (UA) (NEGATIVE) mg/dL Urine Ketones (NEGATIVE) mg/dL Urine Occult Blood (NEGATIVE) Urine Nitrite (NEGAITVE) Urine Bilirubin (NEGATIVE) Urine Urobilinogen (NORMAL) mg/dL Ur Leukocyte Esterase (NEGATIVE) Urine RBC (0-5) Urine WBC (0-5) Ur Epithelial Cells Amorphous Sediment Urine Bacteria Urine Mucus Digoxin 2.63 H (0.90-2.00) ng/mL 12/29/16 Range/Units 16:19 WBC (4.5-11.0) K/uL RBC (4.30-5.90) M/uL Hgb (12.0-15.0) g/dL Hct (40.0-54.0) % MCV (80-98) fL MCH (27-31) pg MCHC (32-36) % Plt Count (150-400) K/uL Neut % (Auto) (36-66) % Lymph % (Auto) (24-44) % [place] % (Auto) (2-6) % Eos % (Auto) (2-4) % Baso % (Auto) (0-1) % PT (9.5-12.0) sec INR (0.80-1.20) Sodium (140-148) mmol/L Potassium (3.6-5.2) mmol/L Chloride (100-108) mmol/L Carbon Dioxide (21-32) mmol/L Anion Gap (5.0-14.0) mmol/L BUN (7-18) mg/dL Creatinine (0.8-1.3) mg/dL Est Cr Clr Drug Dosing mL/min Estimated GFR (MDRD) (>60) Glucose (74-106) mg/dL Lactic Acid (0.4-2.0) mmol/L Calcium (8.5-10.1) mg/dL Total Bilirubin (0.2-1.0) mg/dL AST (15-37) U/L ALT (12-78) U/L Alkaline Phosphatase (46-116) U/L C-Reactive Protein (0.0-0.3) mg/dL Total Protein (6.4-8.2) g/dL Albumin (3.4-5.0) g/dL Globulin (2.3-3.5) g/dL Albumin/Globulin Ratio (1.2-2.2) Urine Color Yellow Urine Appearance Clear Urine pH 5.0 (4.5-8.0) Ur Specific [place] 1.015 (1.008-1.030) Urine Protein 30 H (NEGATIVE) mg/dL Urine Glucose (UA) Normal (NEGATIVE) mg/dL Urine Ketones Negative (NEGATIVE) mg/dL Urine Occult Blood Moderate (NEGATIVE) Urine Nitrite Negative (NEGAITVE) Urine Bilirubin Negative (NEGATIVE) Urine Urobilinogen Normal (NORMAL) mg/dL Ur Leukocyte Esterase Negative (NEGATIVE) Urine RBC 10-20 H (0-5) Urine WBC 0-5 (0-5) Ur Epithelial Cells Not seen Amorphous Sediment Not seen Urine Bacteria Not seen Urine Mucus Not seen Digoxin (0.90-2.00) ng/mL Result Diagrams: 12/29/16 16:01 12/29/16 16:01 Imaging Impressions Last 24 hrs: chest x-ray - images personally reviewed - clear with no evidence for mass, infiltrate, effusion or cardiomegaly *Q Meaningful Use (ADM) - VTE *Q VTE Criteria *Q: - VTE Risk Assess *Q Each Risk Factor Represents 1 Point: None Total Score 1 Point Risk Factors: 0 Each Risk Factor Represents 2 Points: None Total Score 2 Point Risk Factors: 0 Each Risk Factor Represents 3 Points: Age 75 Years or Greater Total Score 3 Point Risk Factors: 3 Each Risk Factor Represents 5 Points: None Total Score 5 Point Risk Factors: 0 Venous Thromboembolism Risk Factor Score *Q: 3 - Stroke *Q Stroke Criteria *Q: - AMI *Q AMI Criteria *Q: - Problem List (1) Weakness SNOMED Code(s): 75325057 ICD Code: R53.1 - WEAKNESS Status: Acute Current Visit: Yes (2) Incontinence SNOMED Code(s): 57118087 ICD Code: R32 - UNSPECIFIED URINARY INCONTINENCE Status: Acute Current Visit: Yes Qualifiers: Incontinence type: fecal Fecal incontinence type: unspecified Qualified Code(s): R15.9 - Full incontinence of feces (3) CKD (chronic kidney disease) stage 3, GFR 30-59 ml/min SNOMED Code(s): 667241241 ICD Code: N18.3 - CHRONIC KIDNEY DISEASE, STAGE 3 (MODERATE) Status: Chronic Current Visit: No (4) Atrial fibrillation SNOMED Code(s): 42148553 ICD Code: I48.91 - UNSPECIFIED ATRIAL FIBRILLATION Status: Chronic Current Visit: No Qualifiers: Atrial fibrillation type: chronic Qualified Code(s): I48.2 - Chronic atrial fibrillation (5) Weakness SNOMED Code(s): 32659124 ICD Code: R53.1 - WEAKNESS Status: Acute Current Visit: No Problem List Initiated/Reviewed/Updated: Yes Orders Last 24hrs: Active Orders 24 hr Category Date Time Status Patient Status Manage Transfer [TRANSFER] Routine ADT 12/29/16 17:46 Ordered Chest 2V [CR] Stat Exams 12/29/16 16:06 Taken CULTURE URINE [RM] Stat Lab 12/29/16 17:06 Received Sodium Chloride 0.9% [Normal Saline] 1,000 ml Med 12/29/16 16:00 Active IV ASDIRECTED Resuscitation Status Routine Resus Stat 12/29/16 17:48 Ordered Medication Orders Sodium Chloride (Normal Saline) 1,000 mls @ 999 mls/hr IV ASDIRECTED MARY Last Admin: 12/29/16 16:34 Dose: 999 mls/hr Assessment/Plan Comment:: Assessment and plan - Generalized weakness and incontinence - no red flags for acute neuro issues. His digoxin level is mildly elevated and this could be contributing. did have recent admission for sepsis with urinary tract infection and may have some residual weakness from this as well. He appears dehydrated at this time and has had poor oral intake. No strong evidence for ongoing infection or new infection. -IV fluids -Hold digoxin -Bowel stimulation -Physical therapy in the morning stage III chronic kidney disease - creatinine level near baseline at this time. mild dehydration. -IV fluids and repeat labs in the morning chronic atrial fibrillation - rate control is excellent. He is chronically anticoagulated. INR is therapeutic. -Continue beta rima and anticoagulation Dementia - very mild at this time, no behavior issues. Maintenance issues - - DVT prophylaxis - warfarin - GI prophylaxis - not indicated - Nutrition - diabetic - Robles catheter - not indicated CODE STATUS - full code Admission justification - This patient will be admitted for inpatient services and is medically appropriate meeting medical necessity for inpatient admission as outlined in my documentation. I reasonably expect the patient will require inpatient services that span a period time over 2 midnights. I reasonably expect this patient to be discharged or transferred within 96 hours [facility]. Disposition - anticipate discharge to home possibly with home care after the hospital stay Primary care physician - Dr Maldonado Hooper M.D.
[2016-12-29] MEDS ORDERED: Ondansetron 4 MG Tab.DIS PO PRN (18:46)
[2016-12-29] MEDS ORDERED: Acetaminophen 325 MG Tab PO PRN (18:46)
[2016-12-29] MEDS ORDERED: Magnesium Hydroxide 400 MG/5 ML Susp 30 ML Cup PO PRN (18:46)
[2016-12-29] MEDS: metFORMIN 500 MG Tab PO SCH (21:12)
[2016-12-29] MEDS: Atenolol 50 MG Tab PO SCH (21:18)
[2016-12-29] MEDS: Donepezil 10 MG Tab PO SCH (21:18)
[2016-12-29] MEDS: Warfarin 2.5 MG Tab PO SCH (21:19)
[2016-12-30] MEDS: Melatonin 3 MG Tab PO PRN (02:03)
[2016-12-30] MEDS: diphenhydrAMINE 25 MG Cap PO PRN (02:03)
[2016-12-30] MEDS: PARoxetine 20 MG Tab PO SCH (08:25)
[2016-12-30] MEDS: atorvaSTATin 20 MG Tab PO SCH (08:26)
[2016-12-30] MEDS: Atenolol 50 MG Tab PO SCH (08:26)
[2016-12-30] MEDS: metFORMIN 500 MG Tab PO SCH ×2 (08:27→17:00)
--- NOTE | 2016-12-30 09:09 | PCM.PN ---
- General Info Date of Service: 12/30/16 Functional Status: Reports: Pain Controlled, Tolerating Diet - Review of Systems General: Reports: Weakness Pulmonary: Denies: Shortness of Breath Gastrointestinal: Denies: Abdominal Pain Systems Review Comment:: No acute events overnight. Didn't sleep well but no particular reason. Strength and appetite both seem better today. Digoxin level is now in the normal range but is at the upper limits of normal. Heart rate typically in the 60s and 70s but occasionally in the 50s. He has not been out of bed yet today. Urinary frequency has improved. No incontinence of bowel. - Patient Data Vitals - most recent: Last Vital Signs Temp 36.3 C 12/30/16 07:00 Pulse 72 12/30/16 08:26 Resp 14 12/30/16 07:00 BP 127/78 12/30/16 08:26 Pulse Ox 92 L 12/30/16 07:00 Weight - most recent: 65.6 kg I&O - last 24 hours: Intake & Output 12/29/16 12/30/16 12/30/16 22:59 06:59 14:59 Intake Total 1140 Output Total 100 200 Balance 1040 -200 Lab Results last 24 hrs: Laboratory Results - last 24 hr 12/30/16 12/30/16 12/30/16 Range/Units 05:45 05:45 05:45 WBC 9.8 (4.5-11.0) K/uL RBC 3.79 L (4.30-5.90) M/uL Hgb 11.2 L (12.0-15.0) g/dL Hct 35.7 L (40.0-54.0) % MCV 94 (80-98) fL MCH 30 (27-31) pg MCHC 31 L (32-36) % Plt Count 234 (150-400) K/uL PT 24.8 H (9.5-12.0) sec INR 2.24 H (0.80-1.20) Sodium 141 (140-148) mmol/L Potassium 3.9 (3.6-5.2) mmol/L Chloride 106 (100-108) mmol/L Carbon Dioxide 28 (21-32) mmol/L Anion Gap 6.7 (5.0-14.0) mmol/L BUN 19 H (7-18) mg/dL Creatinine 1.2 (0.8-1.3) mg/dL Est Cr Clr Drug Dosing 44.04 mL/min Estimated GFR (MDRD) 58 L (>60) Glucose 109 H (74-106) mg/dL Calcium 8.3 L (8.5-10.1) mg/dL Digoxin 1.76 (0.90-2.00) ng/mL Med Orders - Current: Current Medications Acetaminophen (Tylenol) 650 mg PO Q6H PRN PRN Reason: Pain Atenolol (Tenormin) 50 mg PO BID [facility] Last Admin: 12/30/16 08:26 Dose: 50 mg Atorvastatin Calcium (Lipitor) 20 mg PO DAILY [facility] Last Admin: 12/30/16 08:26 Dose: 20 mg Diphenhydramine HCl (Benadryl) 25 mg PO BEDTIME PRN PRN Reason: Insomnia Last Admin: 12/30/16 02:03 Dose: 25 mg Donepezil HCl (Aricept) 5 mg PO BEDTIME [facility] Last Admin: 12/29/16 21:18 Dose: 5 mg Sodium Chloride (Normal Saline) 1,000 mls @ 100 mls/hr IV ASDIRECTED [facility] Last Admin: 12/29/16 19:57 Dose: 100 mls/hr Magnesium Hydroxide (Milk Of Magnesia) 30 ml PO Q12H PRN PRN Reason: Constipation Last Admin: 12/30/16 06:10 Dose: 30 ml Melatonin (Melatonin) 9 mg PO BEDTIME PRN PRN Reason: Insomnia Last Admin: 12/30/16 02:03 Dose: 9 mg Metformin HCl (Glucophage) 1,000 mg PO BIDM [facility] Last Admin: 12/30/16 08:27 Dose: 1,000 mg Ondansetron HCl (Zofran Odt) 4 mg PO Q6H PRN PRN Reason: Nausea able to take PO Paroxetine HCl (Paxil) 5 mg PO DAILY [facility] Last Admin: 12/30/16 08:25 Dose: 5 mg Senna/Docusate Sodium (Senna Plus) 1 tab PO BID PRN PRN Reason: Constipation Warfarin Sodium (Coumadin) 2.5 mg PO [id number]@2100 [facility] Last Admin: 12/29/16 21:19 Dose: 2.5 mg Warfarin Sodium (Coumadin) 5 mg PO MoWeFr@2100 MARY Discontinued Medications Sodium Chloride (Normal Saline) 1,000 mls @ 999 mls/hr IV ASDIRECTED MARY Last Admin: 12/29/16 16:34 Dose: 999 mls/hr - Exam Quality Assessment: No: supplemental oxygen General: alert, oriented, cooperative, no acute distress Neck: supple Lungs: Normal Respiratory Effort Cardiovascular: Regular Rate, Irregular Rhythm GI/Abdominal Exam: Soft, No Distention Extremities: No Pedal Edema. No: Increased Warmth Skin: warm, dry Psy/Mental Status: alert, normal affect - Problem List & Annotations (1) Weakness SNOMED Code(s): 53598438 Code(s): R53.1 - WEAKNESS Status: Acute Current Visit: Yes (2) Incontinence SNOMED Code(s): 40344550 Code(s): R32 - UNSPECIFIED URINARY INCONTINENCE Status: Acute Current Visit: Yes Qualifiers: Incontinence type: fecal Fecal incontinence type: unspecified Qualified Code(s): R15.9 - Full incontinence of feces (3) CKD (chronic kidney disease) stage 3, GFR 30-59 ml/min SNOMED Code(s): 715819032 Code(s): N18.3 - CHRONIC KIDNEY DISEASE, STAGE 3 (MODERATE) Status: Chronic Current Visit: No (4) Atrial fibrillation SNOMED Code(s): 36315700 Code(s): I48.91 - UNSPECIFIED ATRIAL FIBRILLATION Status: Chronic Current Visit: No Qualifiers: Atrial fibrillation type: chronic Qualified Code(s): I48.2 - Chronic atrial fibrillation (5) Weakness SNOMED Code(s): 62199713 Code(s): R53.1 - WEAKNESS Status: Resolved Current Visit: No - Problem List Review Problem List Initiated/Reviewed/Updated: Yes - My Orders Last 24 Hours: My Active Orders 12/29/16 17:48 Resuscitation Status Routine 12/29/16 18:46 Patient Status [ADT] Routine Blood Glucose Check, Bedside [RC] BIDMEALS Intake and Output [RC] Q12H Notify Provider Vital Signs [RC] ASDIRECTED Oxygen Therapy [RC] PRN Up With Assistance [RC] ASDIRECTED VTE/DVT Education [RC] Per Unit Routine Vital Signs [RC] Q4H Docusate Sodium/Sennosides [Senna Plus] 1 tab PO BID PRN Magnesium Hydroxide [Milk of Magnesia] 30 ml PO Q12H PRN Ondansetron [Zofran ODT] 4 mg PO Q6H PRN Sodium Chloride 0.9% [Normal Saline] 1,000 ml IV ASDIRECTED 12/30/16 01:24 diphenhydrAMINE [Benadryl] 25 mg PO BEDTIME PRN 12/30/16 01:25 Melatonin 9 mg PO BEDTIME PRN 12/30/16 07:00 PT Evaluation and Treatment [CONS] Routine 12/30/16 21:00 Warfarin [Coumadin] 5 mg PO MoWeFr@2100 12/31/16 05:00 BASIC METABOLIC PANEL,BMP [CHEM] Timed DIGOXIN [CHEM] Timed HGB [HEMOGLOBIN] [HEME] Timed INR,PT,PROTHROMBIN TIME [COAG] Timed 12/31/16 05:11 DIGOXIN [CHEM] AM - Plan Plan:: Assessment and plan - Generalized weakness and incontinence - no red flags for acute neuro issues. Seems to be doing some better after digoxin was held in level has come down into the normal range. Atenolol accumulation with decreased renal function could be contributing as well. -Saline lock IV -Hold digoxin, plan to restart tomorrow -Decreased atenolol to once daily -Bowel stimulation -Physical therapy stage III chronic kidney disease - creatinine level stable but creatinine clearance is in the 40s. -Saline lock IV and medication changes as above chronic atrial fibrillation - rate control is excellent. He is chronically anticoagulated. INR is therapeutic. -Continue beta irma with decreased dose -Continue anticoagulation Dementia - very mild at this time, no behavior issues. Maintenance issues - - DVT prophylaxis - warfarin - GI prophylaxis - not indicated - Nutrition - diabetic Disposition - anticipate discharge to home possibly with home care after the hospital stay Rey Hooper M.D.
--- NOTE | 2016-12-30 09:15 | CR ---
Chest 2V HISTORY: Weakness COMPARISON: 07/08/2013. FINDINGS: Elevation right hemidiaphragm unchanged. Cardiac size and pulmonary vessels normal. No foc al infiltrates or effusions. No pneumothorax.
[2016-12-30] MEDS ORDERED: Warfarin 5 MG Tab PO SCH ×2 (13:00→21:00)
[2016-12-30] MEDS: Donepezil 10 MG Tab PO SCH (21:44)
[2016-12-31] MEDS: metFORMIN 500 MG Tab PO SCH ×2 (08:38→17:03)
[2016-12-31] MEDS: PARoxetine 20 MG Tab PO SCH (08:38)
[2016-12-31] MEDS: atorvaSTATin 20 MG Tab PO SCH (08:39)
[2016-12-31] MEDS ORDERED: Potassium Chloride 20 MEQ Tab.ER PO ONE (10:30)
[2016-12-31] MEDS: Atenolol 50 MG Tab PO SCH (11:08)
--- NOTE | 2016-12-31 15:40 | PCM.PN ---
- General Info Date of Service: 12/31/16 Functional Status: Reports: Pain Controlled, Tolerating Diet, Ambulating - Review of Systems General: Reports: Weakness Systems Review Comment:: No acute events overnight. In general he is feeling better today with improved strength and appetite. Still weak and deconditioned but at her than yesterday. He has not had any fevers. He had a good bowel movement yesterday. Borderline bradycardia but otherwise vital signs have been stable. Digoxin level has improved further compared to yesterday. - Patient Data Vitals - most recent: Last Vital Signs Temp 36.5 C 12/31/16 12:00 Pulse 52 L 12/31/16 12:00 Resp 16 12/31/16 12:00 BP 143/73 H 12/31/16 12:00 Pulse Ox 97 12/31/16 12:00 Weight - most recent: 65.6 kg I&O - last 24 hours: Intake & Output 12/31/16 12/31/16 12/31/16 06:59 14:59 22:59 Intake Total 480 Output Total 175 225 Balance -175 255 Lab Results last 24 hrs: Laboratory Results - last 24 hr 12/31/16 12/31/16 12/31/16 Range/Units 05:30 05:30 05:30 Hgb 10.7 L (12.0-15.0) g/dL PT 25.5 H (9.5-12.0) sec INR 2.30 H (0.80-1.20) Sodium 140 (140-148) mmol/L Potassium 3.7 (3.6-5.2) mmol/L Chloride 106 (100-108) mmol/L Carbon Dioxide 29 (21-32) mmol/L Anion Gap 4.6 L (5.0-14.0) mmol/L BUN 20 H (7-18) mg/dL Creatinine 1.0 (0.8-1.3) mg/dL Est Cr Clr Drug Dosing 52.84 mL/min Estimated GFR (MDRD) > 60 (>60) Glucose 100 (74-106) mg/dL Calcium 8.2 L (8.5-10.1) mg/dL Digoxin 1.41 (0.90-2.00) ng/mL Med Orders - Current: Current Medications Acetaminophen (Tylenol) 650 mg PO Q6H PRN PRN Reason: Pain Atenolol (Tenormin) 50 mg PO DAILY [facility] Last Admin: 12/31/16 11:08 Dose: 50 mg Atorvastatin Calcium (Lipitor) 20 mg PO DAILY [facility] Last Admin: 12/31/16 08:39 Dose: 20 mg Diphenhydramine HCl (Benadryl) 25 mg PO BEDTIME PRN PRN Reason: Insomnia Last Admin: 12/30/16 02:03 Dose: 25 mg Donepezil HCl (Aricept) 5 mg PO BEDTIME [facility] Last Admin: 12/30/16 21:44 Dose: 5 mg Magnesium Hydroxide (Milk Of Magnesia) 30 ml PO Q12H PRN PRN Reason: Constipation Last Admin: 12/30/16 06:10 Dose: 30 ml Melatonin (Melatonin) 9 mg PO BEDTIME PRN PRN Reason: Insomnia Last Admin: 12/30/16 02:03 Dose: 9 mg Metformin HCl (Glucophage) 1,000 mg PO BIDM [facility] Last Admin: 12/31/16 08:38 Dose: 1,000 mg Ondansetron HCl (Zofran Odt) 4 mg PO Q6H PRN PRN Reason: Nausea able to take PO Paroxetine HCl (Paxil) 5 mg PO DAILY [facility] Last Admin: 12/31/16 08:38 Dose: 5 mg Senna/Docusate Sodium (Senna Plus) 1 tab PO BID PRN PRN Reason: Constipation Warfarin Sodium (Coumadin) 2.5 mg PO SuTuThSa@2100 [facility] Last Admin: 12/29/16 21:19 Dose: 2.5 mg Warfarin Sodium (Coumadin) 5 mg PO MoWeFr@2100 [facility] Last Admin: 12/30/16 21:44 Dose: 5 mg Discontinued Medications Atenolol (Tenormin) 50 mg PO BID [facility] Last Admin: 12/30/16 08:26 Dose: 50 mg Sodium Chloride (Normal Saline) 1,000 mls @ 999 mls/hr IV ASDIRECTED [facility] Last Admin: 12/29/16 16:34 Dose: 999 mls/hr Sodium Chloride (Normal Saline) 1,000 mls @ 100 mls/hr IV ASDIRECTED [facility] Last Admin: 12/29/16 19:57 Dose: 100 mls/hr Potassium Chloride (Klor-Con M20) 40 meq PO ONETIME ONE Stop: 12/31/16 10:31 Last Admin: 12/31/16 11:10 Dose: 40 meq - Exam Quality Assessment: No: supplemental oxygen General: alert, oriented, cooperative, no acute distress Neck: supple Lungs: Clear to Auscultation, Normal Respiratory Effort Cardiovascular: Regular Rate, Irregular Rhythm GI/Abdominal Exam: Soft, No Distention Extremities: No Pedal Edema. No: Increased Warmth Skin: warm, dry Psy/Mental Status: alert, normal affect - Problem List & Annotations (1) Weakness SNOMED Code(s): 51461383 Code(s): R53.1 - WEAKNESS Status: Acute Current Visit: Yes (2) Incontinence SNOMED Code(s): 20550508 Code(s): R32 - UNSPECIFIED URINARY INCONTINENCE Status: Acute Current Visit: Yes Qualifiers: Incontinence type: fecal Fecal incontinence type: unspecified Qualified Code(s): R15.9 - Full incontinence of feces (3) CKD (chronic kidney disease) stage 3, GFR 30-59 ml/min SNOMED Code(s): 508426140 Code(s): N18.3 - CHRONIC KIDNEY DISEASE, STAGE 3 (MODERATE) Status: Chronic Current Visit: No (4) Atrial fibrillation SNOMED Code(s): 03606154 Code(s): I48.91 - UNSPECIFIED ATRIAL FIBRILLATION Status: Chronic Current Visit: No Qualifiers: Atrial fibrillation type: chronic Qualified Code(s): I48.2 - Chronic atrial fibrillation (5) Weakness SNOMED Code(s): 51466442 Code(s): R53.1 - WEAKNESS Status: Resolved Current Visit: No - Problem List Review Problem List Initiated/Reviewed/Updated: Yes - My Orders Last 24 Hours: My Active Orders 12/30/16 21:00 Warfarin [Coumadin] 5 mg PO MoWeFr@2100 12/31/16 09:00 Atenolol [Tenormin] 50 mg PO DAILY 12/31/16 16:30 GLUCOSE POC LAB TO COLLECT [POC] BID 01/01/17 05:00 BASIC METABOLIC PANEL,BMP [CHEM] Timed INR,PT,PROTHROMBIN TIME [COAG] Timed - Plan Plan:: Assessment and plan - Generalized weakness and incontinence - ongoing improvement with decrease in home medications including digoxin and beta irma. No evidence for infection at this time. Borderline bradycardia persists. -Saline lock IV -Hold digoxin, will restart tomorrow -Decrease atenolol to once daily -Physical therapy Stage III chronic kidney disease - creatinine level stable. -Saline lock IV and medication changes as above Chronic atrial fibrillation - rate control is excellent and he is borderline bradycardic. INR therapeutic. -Continue beta irma with decreased dose -Hold digoxin again today, plan to restart tomorrow at decreased dose -Continue anticoagulation Dementia - very mild at this time, no behavior issues. Maintenance issues - - DVT prophylaxis - warfarin - GI prophylaxis - not indicated - Nutrition - diabetic Disposition - anticipate discharge to to halfway on Monday if a bed is available. Patient and his son Dane are interested in halfway for subacute rehabilitation given difficulties over the past 2 weeks. Rey Hooper M.D.
[2016-12-31] MEDS: Donepezil 10 MG Tab PO SCH (20:32)
[2016-12-31] MEDS: Warfarin 2.5 MG Tab PO SCH (20:33)
[2017-01-01] MEDS: atorvaSTATin 20 MG Tab PO SCH (08:57)
[2017-01-01] MEDS: metFORMIN 500 MG Tab PO SCH ×2 (08:57→18:16)
[2017-01-01] MEDS: PARoxetine 20 MG Tab PO SCH (08:58)
[2017-01-01] MEDS: Atenolol 50 MG Tab PO SCH (08:58)
--- NOTE | 2017-01-01 12:17 | PCM.PN ---
- General Info Date of Service: 01/01/17 Functional Status: Reports: Pain Controlled, Tolerating Diet, Ambulating - Review of Systems General: Reports: Weakness Gastrointestinal: Denies: Abdominal Pain Systems Review Comment:: No acute events overnight. No difficulties with shortness of breath or abdominal pain. Appetite continues to improve. Vital signs have been stable. Energy is a little better today. Strength seems to be slowly improving. Patient and family still thinking that prison stay will be the best. - Patient Data Vitals - most recent: Last Vital Signs Temp 37.1 C 01/01/17 10:40 Pulse 55 L 01/01/17 10:40 Resp 16 01/01/17 10:40 BP 137/81 01/01/17 10:40 Pulse Ox 96 01/01/17 10:40 Weight - most recent: 65.6 kg I&O - last 24 hours: Intake & Output 12/31/16 01/01/17 01/01/17 22:59 06:59 14:59 Intake Total 480 30 Output Total 25 25 125 Balance 455 5 -125 Lab Results last 24 hrs: Laboratory Results - last 24 hr 01/01/17 01/01/17 Range/Units 05:15 05:15 PT 25.4 H (9.5-12.0) sec INR 2.29 H (0.80-1.20) Sodium 141 (140-148) mmol/L Potassium 4.1 (3.6-5.2) mmol/L Chloride 105 (100-108) mmol/L Carbon Dioxide 29 (21-32) mmol/L Anion Gap 7.3 (5.0-14.0) mmol/L BUN 22 H (7-18) mg/dL Creatinine 0.9 (0.8-1.3) mg/dL Est Cr Clr Drug Dosing 58.72 mL/min Estimated GFR (MDRD) > 60 (>60) Glucose 99 (74-106) mg/dL Calcium 8.3 L (8.5-10.1) mg/dL Med Orders - Current: Current Medications Acetaminophen (Tylenol) 650 mg PO Q6H PRN PRN Reason: Pain Atenolol (Tenormin) 50 mg PO DAILY [facility] Last Admin: 01/01/17 08:58 Dose: 50 mg Atorvastatin Calcium (Lipitor) 20 mg PO DAILY [facility] Last Admin: 01/01/17 08:57 Dose: 20 mg Diphenhydramine HCl (Benadryl) 25 mg PO BEDTIME PRN PRN Reason: Insomnia Last Admin: 12/30/16 02:03 Dose: 25 mg Donepezil HCl (Aricept) 5 mg PO BEDTIME [facility] Last Admin: 12/31/16 20:32 Dose: 5 mg Magnesium Hydroxide (Milk Of Magnesia) 30 ml PO Q12H PRN PRN Reason: Constipation Last Admin: 12/30/16 06:10 Dose: 30 ml Melatonin (Melatonin) 9 mg PO BEDTIME PRN PRN Reason: Insomnia Last Admin: 12/30/16 02:03 Dose: 9 mg Metformin HCl (Glucophage) 1,000 mg PO BIDM [facility] Last Admin: 01/01/17 08:57 Dose: 1,000 mg Ondansetron HCl (Zofran Odt) 4 mg PO Q6H PRN PRN Reason: Nausea able to take PO Paroxetine HCl (Paxil) 5 mg PO DAILY [facility] Last Admin: 01/01/17 08:58 Dose: 5 mg Senna/Docusate Sodium (Senna Plus) 1 tab PO BID PRN PRN Reason: Constipation Warfarin Sodium (Coumadin) 2.5 mg PO SuTuThSa@2100 [facility] Last Admin: 12/31/16 20:33 Dose: 2.5 mg Warfarin Sodium (Coumadin) 5 mg PO MoWeFr@2100 [facility] Last Admin: 12/30/16 21:44 Dose: 5 mg Discontinued Medications Atenolol (Tenormin) 50 mg PO BID [facility] Last Admin: 12/30/16 08:26 Dose: 50 mg Sodium Chloride (Normal Saline) 1,000 mls @ 999 mls/hr IV ASDIRECTED [facility] Last Admin: 12/29/16 16:34 Dose: 999 mls/hr Sodium Chloride (Normal Saline) 1,000 mls @ 100 mls/hr IV ASDIRECTED [facility] Last Admin: 12/29/16 19:57 Dose: 100 mls/hr Potassium Chloride (Klor-Con M20) 40 meq PO ONETIME ONE Stop: 12/31/16 10:31 Last Admin: 12/31/16 11:10 Dose: 40 meq - Exam Quality Assessment: No: supplemental oxygen General: alert, oriented, cooperative, no acute distress Neck: supple Lungs: Normal Respiratory Effort Cardiovascular: Regular Rate, Regular Rhythm GI/Abdominal Exam: Soft, No Distention Extremities: No Pedal Edema. No: Increased Warmth Skin: warm, dry Psy/Mental Status: alert, normal affect - Problem List & Annotations (1) Weakness SNOMED Code(s): 29856235 Code(s): R53.1 - WEAKNESS Status: Acute Current Visit: Yes (2) Incontinence SNOMED Code(s): 47543088 Code(s): R32 - UNSPECIFIED URINARY INCONTINENCE Status: Acute Current Visit: Yes Qualifiers: Incontinence type: fecal Fecal incontinence type: unspecified Qualified Code(s): R15.9 - Full incontinence of feces (3) CKD (chronic kidney disease) stage 3, GFR 30-59 ml/min SNOMED Code(s): 123449637 Code(s): N18.3 - CHRONIC KIDNEY DISEASE, STAGE 3 (MODERATE) Status: Chronic Current Visit: No (4) Atrial fibrillation SNOMED Code(s): 00511312 Code(s): I48.91 - UNSPECIFIED ATRIAL FIBRILLATION Status: Chronic Current Visit: No Qualifiers: Atrial fibrillation type: chronic Qualified Code(s): I48.2 - Chronic atrial fibrillation (5) Weakness SNOMED Code(s): 49693381 Code(s): R53.1 - WEAKNESS Status: Resolved Current Visit: No - Problem List Review Problem List Initiated/Reviewed/Updated: Yes - My Orders Last 24 Hours: My Active Orders 01/01/17 17:00 GLUCOSE POC LAB TO COLLECT [POC] BIDAC - Plan Plan:: Assessment and plan - Generalized weakness and incontinence - ongoing improvement with decrease in home medications including digoxin and beta irma. No evidence for infection at this time. -Saline lock IV -Hold digoxin, will restart Monday at reduced dose -Decreased atenolol to once daily -Physical therapy Stage III chronic kidney disease - creatinine level stable. -Saline lock IV and medication changes as above Chronic atrial fibrillation - rate control is excellent and he is borderline bradycardic. INR therapeutic. -Continue beta irma with decreased dose -Hold digoxin again today, plan to restart Monday at decreased dose -Continue anticoagulation Dementia - very mild at this time, no behavior issues. Maintenance issues - - DVT prophylaxis - warfarin - GI prophylaxis - not indicated - Nutrition - diabetic Disposition - anticipate discharge to to prison on Monday if a bed is available. Patient and his son Dane are interested in prison for subacute rehabilitation given difficulties over the past 2 weeks. Rey Hooper M.D.
[2017-01-01] MEDS: Melatonin 3 MG Tab PO PRN (20:18)
[2017-01-01] MEDS: Warfarin 2.5 MG Tab PO SCH (20:18)
[2017-01-01] MEDS: Donepezil 10 MG Tab PO SCH (20:18)
[2017-01-01] MEDS: diphenhydrAMINE 25 MG Cap PO PRN (22:19)
[2017-01-02] MEDS: metFORMIN 500 MG Tab PO SCH (08:43)
[2017-01-02] MEDS: atorvaSTATin 20 MG Tab PO SCH (08:44)
[2017-01-02] MEDS: PARoxetine 20 MG Tab PO SCH (08:44)
[2017-01-02] MEDS: Atenolol 50 MG Tab PO SCH (08:45)
[2017-01-02 11:49] VITALS: BP 139/87
--- NOTE | 2017-01-02 12:02 | PCM.DCSUM1 ---
Discharge Summary - Hospital Course Brief History: Mr. Cason is an 81-year-old gentleman who is admitted through the emergency department because of progressive weakness and fatigue associated with shortness of breath. - Discharge Data Discharge Date: 01/02/17 Discharge Disposition: DC/Tfer to SNF 03 Condition: Fair - Discharge Diagnosis/Problem(s) (1) Weakness SNOMED Code(s): 86177613 ICD Code: R53.1 - WEAKNESS Status: Acute Current Visit: Yes (2) Atrial fibrillation SNOMED Code(s): 63156988 ICD Code: I48.91 - UNSPECIFIED ATRIAL FIBRILLATION Status: Chronic Current Visit: No Qualifiers: Atrial fibrillation type: chronic Qualified Code(s): I48.2 - Chronic atrial fibrillation (3) CKD (chronic kidney disease) stage 3, GFR 30-59 ml/min SNOMED Code(s): 894609457 ICD Code: N18.3 - CHRONIC KIDNEY DISEASE, STAGE 3 (MODERATE) Status: Chronic Current Visit: No (4) Peripheral arterial occlusive disease SNOMED Code(s): 023731576 ICD Code: I77.9 - DISORDER OF ARTERIES AND ARTERIOLES, UNSPECIFIED Status: Chronic Current Visit: No - Patient Summary/Data Consults: Consultations 12/30/16 07:00 PT Evaluation and Treatment [CONS] Routine Please Evaluate and Treat. PT Reason for Consult: Strengthening This query below is only for informational purposes and is not editable. Hospital Course: Mr. Cason is an 81-year-old gentleman who had been admitted to this facility one week prior to this admission with urinary tract infection and sepsis. After discharge he initially did well but then became progressively more weak and also developed symptoms of shortness of breath. On evaluation his dig level was elevated and he was felt to have some degree of dig toxicity with bradycardia contributing to current symptoms. After admission and his digoxin was held and then later restarted at a lower dose of 0.125 mg daily. His atenolol dose was also decreased from 50 mg twice daily to 50 mg once daily. He did seem to improve significantly with these interventions but still remained fairly weak and it was felt that he would benefit from custodial placement for restorative physical therapy and occupational therapy. He had no evidence of underlying urinary tract infection noted during this admission. Activity will be as tolerated and he will resume his usual diet. Digoxin level and INR will be checked again in a few days. - Patient Instructions Diet: Diabetic Diet Activity: As Tolerated - Discharge Plan Prescriptions/Med Rec: Digoxin [Lanoxin] 125 mcg PO DAILY@1300 #30 tablet Home Medications: Home Meds metFORMIN [Glucophage] 1,000 mg PO BIDM 07/08/13 [History] Acetaminophen [Tylenol] 650 mg PO Q6H PRN #120 tab 07/19/13 [Rx] Donepezil [Aricept] 5 mg PO BEDTIME 12/19/16 [History] PARoxetine [Paxil] 5 mg PO DAILY 12/19/16 [History] atorvaSTATin [Lipitor] 20 mg PO DAILY 12/19/16 [History] Atenolol [Tenormin] 50 mg PO DAILY tablet 01/02/17 [Rx] Digoxin [Lanoxin] 125 mcg PO DAILY@1300 #30 tablet 01/02/17 [Rx] Warfarin [Coumadin] 2.5 mg PO SuTuThSa@2100 tablet 01/02/17 [Rx] Warfarin [Coumadin] 5 mg PO MoWeFr@2100 tablet 01/02/17 [Rx] Forms: ED Department Discharge Referrals: Terrell Okeefe MD [Primary Care Provider] - - Patient Data Vitals - Most Recent: Last Vital Signs Temp 95.8 F 01/02/17 11:45 Pulse 54 L 01/02/17 11:45 Resp 16 01/02/17 11:45 BP 139/87 01/02/17 11:45 Pulse Ox 96 01/02/17 11:45 Weight - Most Recent: 144 lb 9.972 oz I&O - Last 24 hours: Intake & Output 01/01/17 01/02/17 01/02/17 22:59 06:59 14:59 Intake Total 300 240 480 Output Total 450 300 Balance -150 240 180 Med Orders - Current: Current Medications Acetaminophen (Tylenol) 650 mg PO Q6H PRN PRN Reason: Pain Atenolol (Tenormin) 50 mg PO DAILY [facility] Last Admin: 01/02/17 08:45 Dose: 50 mg Atorvastatin Calcium (Lipitor) 20 mg PO DAILY [facility] Last Admin: 01/02/17 08:44 Dose: 20 mg Digoxin (Lanoxin) 125 mcg PO DAILY@1300 [facility] Diphenhydramine HCl (Benadryl) 25 mg PO BEDTIME PRN PRN Reason: Insomnia Last Admin: 01/01/17 22:19 Dose: 25 mg Donepezil HCl (Aricept) 5 mg PO BEDTIME [facility] Last Admin: 01/01/17 20:18 Dose: 5 mg Magnesium Hydroxide (Milk Of Magnesia) 30 ml PO Q12H PRN PRN Reason: Constipation Last Admin: 12/30/16 06:10 Dose: 30 ml Melatonin (Melatonin) 9 mg PO BEDTIME PRN PRN Reason: Insomnia Last Admin: 01/01/17 20:18 Dose: 9 mg Metformin HCl (Glucophage) 1,000 mg PO BIDM [facility] Last Admin: 01/02/17 08:43 Dose: 1,000 mg Ondansetron HCl (Zofran Odt) 4 mg PO Q6H PRN PRN Reason: Nausea able to take PO Paroxetine HCl (Paxil) 5 mg PO DAILY [facility] Last Admin: 01/02/17 08:44 Dose: 5 mg Senna/Docusate Sodium (Senna Plus) 1 tab PO BID PRN PRN Reason: Constipation Warfarin Sodium (Coumadin) 2.5 mg PO SuTuThSa@2100 [facility] Last Admin: 01/01/17 20:18 Dose: 2.5 mg Warfarin Sodium (Coumadin) 5 mg PO MoWeFr@2100 [facility] Last Admin: 12/30/16 21:44 Dose: 5 mg Discontinued Medications Atenolol (Tenormin) 50 mg PO BID [facility] Last Admin: 12/30/16 08:26 Dose: 50 mg Sodium Chloride (Normal Saline) 1,000 mls @ 999 mls/hr IV ASDIRECTED [facility] Last Admin: 12/29/16 16:34 Dose: 999 mls/hr Sodium Chloride (Normal Saline) 1,000 mls @ 100 mls/hr IV ASDIRECTED [facility] Last Admin: 12/29/16 19:57 Dose: 100 mls/hr Potassium Chloride (Klor-Con M20) 40 meq PO ONETIME ONE Stop: 12/31/16 10:31 Last Admin: 12/31/16 11:10 Dose: 40 meq *Q Meaningful Use (DIS) - VTE *Q VTE Criteria *Q: - Stroke *Q Stroke Criteria *Q: - AMI *Q AMI Criteria *Q:
[2017-01-02] MEDS ORDERED: Digoxin 125 MCG Tab PO SCH (13:00)
== END 2017-01-02 13:29 | DRG 948 ==
LOC: JP.ED 15:16 → UNDOADMIN 17:46 → JP.ICU 17:46 → JP.MS 12-31 11:30 → JP.ICU 12-31 11:30 → UNDODISIN 01-02 13:29
PROVIDERS: ADMIT Internal Medicine; ATTEND Hospitalist
DX: R53.1 Weakness (principal); T46.0X5A Adverse effect of cardiac-stimulant glycosides and drugs of similar action, initial encounter; Y92.009 Unspecified place in unspecified non-institutional (private) residence as the place of occurrence of the external cause; I12.9 Hypertensive chronic kidney disease with stage 1 through stage 4 chronic kidney disease, or unspecified chronic kidney disease; N18.3 Chronic kidney disease, stage 3 (moderate); E11.9 Type 2 diabetes mellitus without complications; I48.2 Chronic atrial fibrillation; G30.9 Alzheimer's disease, unspecified; F02.80 Dementia in other diseases classified elsewhere, unspecified severity, without behavioral disturbance, psychotic disturbance, mood disturbance, and anxiety; Z79.01 Long term (current) use of anticoagulants; Z79.84 Long term (current) use of oral hypoglycemic drugs; R15.9 Full incontinence of feces; R32 Unspecified urinary incontinence; F32.9 Major depressive disorder, single episode, unspecified; M19.90 Unspecified osteoarthritis, unspecified site; E78.00 Pure hypercholesterolemia, unspecified; Z86.718 Personal history of other venous thrombosis and embolism; H91.90 Unspecified hearing loss, unspecified ear; H54.7 Unspecified visual loss; R06.02 Shortness of breath
CPT/HCPCS: 36415; 71020 ×2; 80053; 80162; 81001; 83605; 85025; 85610; 86140; 87086; 96360; 99285; J7040; 80048; 82962; 85018; 85027; 97116-GP; 97162-GP; 97530-GP; A9270-GY

== ENCOUNTER 2017-07-28 06:15 | Emergency (ER) | payer MEDICARE, MEDICAID ==
[2017-07-28] MEDS ORDERED: Sodium Chloride 0.9% 1,000 ML IV SCH (08:15)
--- NOTE | 2017-07-28 08:25 | CR ---
Chest 1V Frontal HISTORY: sob with activity COMPARISON: Portable chest, 0750 hours. FINDINGS: Lungs appear clear and normally aerated. Cardiomediastinal silhouette is within normal limits for the AP technique. No vascular redistribution or pleural fluid can be seen. Degenerative changes are note d both shoulders. There is old AC separation and hypertrophic changes on the left.. IMPRESSION: No acute chest abnormality or significant interval change compared with 12/29/2016.
--- NOTE | 2017-07-28 08:27 | EDM.PDOC ---
ED HPI GENERAL MEDICAL PROBLEM - General Chief Complaint: Genitourinary Problem Stated Complaint: MEDICAL VIA Time Seen by Provider: 07/28/17 07:00 Source of Information: Reports: Patient, Family History Limitations: Reports: No Limitations - History of Present Illness INITIAL COMMENTS - FREE TEXT/NARRATIVE: Pt has been up an down all nite.He voided frequently.He does war a brief so he usually is not up and down. There did not appearto be any definite pain. He does nothave a fever. He has a history of utis. Onset: Today, Other (Pt had a uncomfortabe nite. ) Duration: Hour(s): Associated Symptoms: Reports: Confusion, Other ( voiding frequently) Denies Pain Score (Numeric/FACES): 0 - Related Data Allergies Allergy/AdvReac Type Severity Reaction Status Date / Time No Known Allergies Allergy Verified 07/28/17 06:25 Home Meds: Home Meds metFORMIN [Glucophage] 1,000 mg PO BIDM 07/08/13 [History] Acetaminophen [Tylenol] 650 mg PO Q6H PRN #120 tab 07/19/13 [Rx] Donepezil [Aricept] 5 mg PO BEDTIME 12/19/16 [History] PARoxetine [Paxil] 5 mg PO DAILY 12/19/16 [History] Digoxin [Lanoxin] 125 mcg PO DAILY@1300 #30 tablet 01/02/17 [Rx] Furosemide [Lasix] 20 mg PO DAILY 07/28/17 [History] Melatonin 5 mg PO DAILY 07/28/17 [History] Warfarin [Coumadin] 5 mg PO DAILY 07/28/17 [History] Past Medical History HEENT History: Reports: Hard of Hearing, Impaired Vision Cardiovascular History: Reports: Arrhythmia, Blood Clots/VTE/DVT, High Cholesterol, Hypertension Gastrointestinal History: Reports: None Genitourinary History: Reports: Other (See Below) Other Genitourinary History: UTI Musculoskeletal History: Reports: Fracture, Osteoarthritis, Other (See Below) Other Musculoskeletal History: pelvic fracture Neurological History: Reports: Alzheimers Disease Psychiatric History: Reports: Depression Other Psychiatric History: unable to obtain Endocrine/Metabolic History: Reports: Diabetes, Type II Hematologic History: Reports: Blood Transfusion(s) Other Hematologic History: unable to obtain Immunologic History: Reports: Other (See Below) Other Immunologic History: unable to obtain Dermatologic History: Reports: Cellulitis - Infectious Disease History Infectious Disease History: Reports: Chicken Pox, Measles, Mumps, Shingles - Past Surgical History GI Surgical History: Reports: Colonoscopy Social & Family History - Family History Family Medical History: Noncontributory - Tobacco Use Smoking Status *Q: Unknown Ever Smoked Second Hand Smoke Exposure: No - Caffeine Use Caffeine Use: Reports: Coffee, Soda, Tea Caffeine Use Comment: unable to obtain - Alcohol Use Days Per Week of Alcohol Use: 1 Number of Drinks Per Day: 1 Total Drinks Per Week: 1 - Recreational Drug Use Recreational Drug Use: No ED ROS GENERAL - Review of Systems Review Of Systems: See Below Constitutional: Reports: Weakness, Fatigue HEENT: Reports: No Symptoms Respiratory: Reports: Other (Pt seemes quite sob with activity. ) Cardiovascular: Reports: No Symptoms Endocrine: Reports: No Symptoms : Reports: No Symptoms (pt did void frequently during the nite. ) Musculoskeletal: Reports: No Symptoms Skin: Reports: No Symptoms Neurological: Reports: No Symptoms ED EXAM, GI/ABD - Physical Exam Exam: See Below Text/Narrative:: pt arrived with increasd confusion. He was up and down all nite. He did not complain of pain when he voided. Exam Limited By: No Limitations General Appearance: Alert, No Apparent Distress, Other (pupils equal and reactive. ) Ears: Normal TMs Nose: Normal Inspection Throat/Mouth: Normal Inspection Head: Atraumatic Neck: Normal Inspection Respiratory/Chest: No Respiratory Distress Cardiovascular: Irregularly Irregular GI/Abdominal Exam: Soft, Non-Tender (Male) Exam: Deferred, Other (pt had a bladder scan and he had about 200 in the bladder. ) Rectal (Males) Exam: Deferred Back Exam: Normal Inspection Extremities: Normal Inspection Neurological: Alert, Oriented, Normal Cognition Psychiatric: Normal Affect Course - Vital Signs Last Recorded V/S: Last Vital Signs Temp 37.2 C 07/28/17 08:49 Pulse 84 07/28/17 09:06 Resp 18 07/28/17 09:06 BP 149/91 H 07/28/17 09:06 Pulse Ox 95 07/28/17 09:06 - Orders/Labs/Meds Orders: Active Orders 24 hr Category Date Time Status Sodium Chloride 0.9% [Normal Saline] 1,000 ml Med 07/28/17 08:15 Active IV ASDIRECTED Medication Orders Sodium Chloride (Normal Saline) 1,000 mls @ 999 mls/hr IV ASDIRECTED MARY Last Admin: 07/28/17 08:24 Dose: 999 mls/hr Labs: Laboratory Tests 07/28/17 07/28/17 07/28/17 Range/Units 07:39 07:45 07:45 WBC (4.5-11.0) K/uL RBC (4.30-5.90) M/uL Hgb (12.0-15.0) g/dL Hct (40.0-54.0) % MCV (80-98) fL MCH (27-31) pg MCHC (32-36) % Plt Count (150-400) K/uL Neut % (Auto) (36-66) % Lymph % (Auto) (24-44) % [place] % (Auto) (2-6) % Eos % (Auto) (2-4) % Baso % (Auto) (0-1) % PT 72.6 H (9.5-12.0) sec INR 6.28 H* D (0.80-1.20) Sodium (140-148) mmol/L Potassium (3.6-5.2) mmol/L Chloride (100-108) mmol/L Carbon Dioxide (21-32) mmol/L Anion Gap (5.0-14.0) mmol/L BUN (7-18) mg/dL Creatinine (0.8-1.3) mg/dL Est Cr Clr Drug Dosing mL/min Estimated GFR (MDRD) (>60) Glucose (74-106) mg/dL Lactic Acid (0.4-2.0) mmol/L Calcium (8.5-10.1) mg/dL Total Bilirubin (0.2-1.0) mg/dL AST (15-37) U/L ALT (12-78) U/L Alkaline Phosphatase (46-116) U/L Lactate Dehydrogenase 238 H (85-227) U/L Total Protein (6.4-8.2) g/dL Albumin (3.4-5.0) g/dL Globulin (2.3-3.5) g/dL Albumin/Globulin Ratio (1.2-2.2) Urine Color Yellow Urine Appearance Slightly cloudy Urine pH 7.0 (4.5-8.0) Ur Specific [place] 1.010 (1.008-1.030) Urine Protein 30 H (NEGATIVE) mg/dL Urine Glucose (UA) Normal (NEGATIVE) mg/dL Urine Ketones Negative (NEGATIVE) mg/dL Urine Occult Blood Negative (NEGATIVE) Urine Nitrite Negative (NEGAITVE) Urine Bilirubin Negative (NEGATIVE) Urine Urobilinogen Normal (NORMAL) mg/dL Ur Leukocyte Esterase Negative (NEGATIVE) Urine RBC 0-5 (0-5) Urine WBC 0-5 (0-5) Ur Epithelial Cells Few Amorphous Sediment Not seen Urine Bacteria Not seen Urine Mucus Few 07/28/17 07/28/17 07/28/17 Range/Units 07:48 07:48 09:01 WBC 6.0 (4.5-11.0) K/uL RBC 3.51 L (4.30-5.90) M/uL Hgb 11.3 L (12.0-15.0) g/dL Hct 34.6 L (40.0-54.0) % MCV 99 H (80-98) fL MCH 32 H (27-31) pg MCHC 33 (32-36) % Plt Count 202 (150-400) K/uL Neut % (Auto) 69 H (36-66) % Lymph % (Auto) 17 L (24-44) % [place] % (Auto) 12 H (2-6) % Eos % (Auto) 2 (2-4) % Baso % (Auto) 0 (0-1) % PT (9.5-12.0) sec INR (0.80-1.20) Sodium 140 (140-148) mmol/L Potassium 4.2 (3.6-5.2) mmol/L Chloride 103 (100-108) mmol/L Carbon Dioxide 32 (21-32) mmol/L Anion Gap 4.6 L (5.0-14.0) mmol/L BUN 36 H D (7-18) mg/dL Creatinine 1.1 (0.8-1.3) mg/dL Est Cr Clr Drug Dosing 42.44 mL/min Estimated GFR (MDRD) > 60 (>60) Glucose 111 H (74-106) mg/dL Lactic Acid 1.6 (0.4-2.0) mmol/L Calcium 9.1 (8.5-10.1) mg/dL Total Bilirubin 0.6 (0.2-1.0) mg/dL AST 20 (15-37) U/L ALT 19 (12-78) U/L Alkaline Phosphatase 81 (46-116) U/L Lactate Dehydrogenase (85-227) U/L Total Protein 6.6 (6.4-8.2) g/dL Albumin 3.2 L (3.4-5.0) g/dL Globulin 3.4 (2.3-3.5) g/dL Albumin/Globulin Ratio 0.9 L (1.2-2.2) Urine Color Urine Appearance Urine pH (4.5-8.0) Ur Specific [place] (1.008-1.030) Urine Protein (NEGATIVE) mg/dL Urine Glucose (UA) (NEGATIVE) mg/dL Urine Ketones (NEGATIVE) mg/dL Urine Occult Blood (NEGATIVE) Urine Nitrite (NEGAITVE) Urine Bilirubin (NEGATIVE) Urine Urobilinogen (NORMAL) mg/dL Ur Leukocyte Esterase (NEGATIVE) Urine RBC (0-5) Urine WBC (0-5) Ur Epithelial Cells Amorphous Sediment Urine Bacteria Urine Mucus Meds: Medications Generic Name Dose Route Start Last Admin Trade Name Freq PRN Reason Stop Dose Admin Sodium Chloride 1,000 mls @ 999 mls/hr 07/28/17 08:15 07/28/17 08:24 Normal Saline IV 999 mls/hr ASDIRECTED MARY Administration Discontinued Medications Generic Name Dose Route Start Last Admin Trade Name Freq PRN Reason Stop Dose Admin Phytonadione 4 mg 07/28/17 10:00 07/28/17 10:00 Aquamephyton IM 07/28/17 10:01 4 mg ONETIME ONE Administration - Re-Assessments/Exams Free Text/Narrative Re-Assessment/Exam: 07/28/17 09:08 pt arrived with a history of frequent voiding and increased frequently .He has been more confused. Pt does have a increased inr at greater than 6. He was given vit k 4 mg im. 07/28/17 09:17 07/28/17 11:38 ua was found to be clear. He had a normal lactic acid. His Inr was high. Departure - Departure Time of Disposition: 11:39 Disposition: Home, Self-Care 01 Condition: Fair Clinical Impression: Elevated INR, Insomnia - Discharge Information Referrals: PCP,None [Primary Care Provider] - Forms: ED Department Discharge Care Plan Goals: trazadone 25 mg hs and if he is not resting in 4-5 days increase to 50mg, hold coumadin today, after that resume the regiment of 1 mg 1 day and 1.5 mg the next. Get an Inr done on Monday. rtc if increased problems. - My Orders Last 24 Hours: My Active Orders 07/28/17 08:15 Sodium Chloride 0.9% [Normal Saline] 1,000 ml IV ASDIRECTED - Assessment/Plan Last 24 Hours: My Active Orders 07/28/17 08:15 Sodium Chloride 0.9% [Normal Saline] 1,000 ml IV ASDIRECTED
[2017-07-28 11:54] VITALS: BP 147/87
== END 2017-07-28 11:54 | disposition home or self-care (01) ==
LOC: JP.ED 06:15
DX: G47.00 Insomnia, unspecified (principal); R79.1 Abnormal coagulation profile; E11.9 Type 2 diabetes mellitus without complications; I10 Essential (primary) hypertension; E78.00 Pure hypercholesterolemia, unspecified; Z79.899 Other long term (current) drug therapy; Z79.01 Long term (current) use of anticoagulants
CPT/HCPCS: 36415; 71045; 80053; 81001; 83605; 83615; 85025; 85610; 96360; 96372; 99285; J3430; J7040